=== PATIENT | female | born 1955 | race Caucasian/White ===

== ENCOUNTER → 2016-06-02 17:35 | Outpatient (CLI) | payer MEDICAID ==
[2015-12-01 07:26] VITALS: BMI 19.3
[~2016-06-02 17:35] MED LIST: ADVIL200 MG PO; BAYER CHEWABLE81 MG PO; CELEXA10 MG PO; CHANTIX 1 MG TAB1 MG PO; EFFEXOR XR75 MG PO; FISH OIL 1,0001 CA1 PO; HYDRALAZINE HCL25 MG PO; HYDROCODONE-APA1 TAB PO; LIPITOR20 MG PO; LOPERAMIDE HCL2 MG PO; MULTIPLE VITAMI1 TA1 PO; NIFEDIPINE ER30 MG PO; PLAVIX75 MG PO; PREDNISONE20 MG PO; PROZAC20 MG PO; RESTORIL15 MG PO; SINGULAIR10 MG PO; TOPROL XL25 MG PO; ULTRAM50 MG PO
[2016-06-02 19:39] LABS: ALT (SGPT) 58 U/L (10-68); CHOL - HDL RATIO 9.7 ratio (2.3-4.1); CHOLESTEROL, TOTAL 290 mg/dL (0-200); HDL CHOLESTEROL 30 mg/dL (32-96); TRIGLYCERIDE 436 mg/dL (30-200)
== END | disposition home or self-care (01) ==
LOC: D.LABREF 17:35
PROVIDERS: Nurse Practitioner
DX: E78.5 Hyperlipidemia, unspecified (principal)

== ENCOUNTER → 2016-06-08 08:07 | Outpatient (CLI) | payer MEDICAID ==
[2015-12-01 07:26] VITALS: BMI 19.3
[2016-06-09 08:20] LABS: HEPATITIS C ANTIBODY <0.1 (0.0-0.9)
== END | disposition home or self-care (01) ==
LOC: D.US 08:07
PROVIDERS: Internal Medicine Gastroenterology
DX: R10.9 Unspecified abdominal pain (principal); R74.8 Abnormal levels of other serum enzymes

== ENCOUNTER → 2016-06-14 08:39 | Outpatient (CLI) | payer MEDICAID ==
[2015-12-01 07:26] VITALS: BMI 19.3
== END | disposition home or self-care (01) ==
LOC: D.CT 08:39
DX: R93.422 Abnormal radiologic findings on diagnostic imaging of left kidney (principal); N28.9 Disorder of kidney and ureter, unspecified

== ENCOUNTER → 2016-06-24 09:40 | Outpatient (CLI) | payer MEDICAID ==
[2015-12-01 07:26] VITALS: BMI 19.3
[2016-06-24 10:56] LABS: ALBUMIN 3.3 g/dL (3.4-5.0); BILIRUBIN - INDIRECT 0.17 mg/dL (0.00-1.00); BILIRUBIN - TOTAL 0.21 mg/dL (0.2-1.3); PROTEIN - SERUM 8.3 g/dL (6.4-8.2)
[2016-06-24 10:58] LABS: BILIRUBIN - DIRECT 0.04 mg/dL (0.00-0.30)
[2016-06-25 08:15] LABS: CEA 5.3 ng/mL (0.0-4.7)
== END | disposition home or self-care (01) ==
LOC: D.LAB 09:40
PROVIDERS: Internal Medicine Gastroenterology
DX: K86.89 Other specified diseases of pancreas (principal)

== ENCOUNTER 2016-07-07 05:28 | Outpatient (CLI) | payer MEDICAID ==
[~2016-07-07] VITALS: Ht 160 cm; Wt 54.5 kg
[~2016-07-07 05:28] MED LIST changes: -FISH OIL 1,0001 CA1 PO; -LIPITOR20 MG PO; -LOPERAMIDE HCL2 MG PO; -PREDNISONE20 MG PO; -SINGULAIR10 MG PO
[2016-07-07 06:25] VITALS: BP 114/64; Ht 160 cm; Wt 54.5 kg
[2016-07-07 06:31] LABS: BASOPHILS 0.2 % (0.0-2.0); EOSINOPHILS 1.3 % (0-7); HEMATOCRIT 46.2 % (36.0-48.0); IMMATURE GRANULOCYTES 0.5 % (0-5); LYMPHOCYTES 21.9 % (15-50); MCH 32.1 pg (26.0-34.0); MCHC 34.6 g/dL (31.0-37.0); MCV 92.8 fL (80.0-100.0); MEAN PLATELET VOLUME 9.4 fL (7.4-10.4); NEUTROPHILS 66.1 % (40-80); RBC 4.98 10x6/uL (4.00-5.40); RDW 13.5 % (11.5-14.5)
[2016-07-07] MEDS ORDERED: LIPITOR20 MG PO (06:32)
[2016-07-07] MEDS ORDERED: FISH OIL 1,0001 CA1 PO (06:32)
[2016-07-07 06:39] LABS: PLATELET COUNT 264 10x3/uL (130-400)
[2016-07-07 07:02] LABS: CALC OSMOLALITY 275 mosm/kg (275-300); CALCIUM 8.8 mg/dL (8.5-10.1); CARBON DIOXIDE 23.2 mmol/L (21.0-32.0); CHLORIDE - SERUM 102 mmol/L (98-107); CREATININE - SERUM 0.6 mg/dL (0.6-1.3); SODIUM 137 mmol/L (136-145); UREA NITROGEN 15 mg/dL (7-18); eGFR NON AFRICAN AMERICAN > 90 mL/min (90-120)
[2016-07-07 07:06] LABS: GLUCOSE 113 mg/dL (74-106)
[2016-07-07 07:18] LABS: APTT 35.3 SECONDS (22.8-39.4); INR 0.99 (0.85-1.17)
--- NOTE | 2016-07-07 09:33 | NUR ---
0915-RECD FROM INTERVENTIONAL RADIOLOGY, POST OP PANCREAS BIOPSY. LEFT LOWER/OUTER BACK DRESING DRY AND INTACT. IV PATENT LEFT WRIST. DENIES PAIN. 0930-REGULAR BREAKFAST TRAY SERVED. NO NAUSEA. NO PAIN.
--- NOTE | 2016-07-07 10:16 | NUR ---
1000-SEE FREQUENT VITAL SIGN SHEET FOR VITAL SIGNS AND INCISION CHECK.
--- NOTE | 2016-07-07 11:51 | NUR ---
1130-UP TO BATHROOM, VOIDS FREELY. AMBULATES WITHOUT DIZZINESS WITH STAND BY ASSIST. 1145-IV D/C.
--- NOTE | 2016-07-07 13:58 | NUR ---
1200-DRESSING DRY AND INTACT, DENIES PAIN. 1230-DISCHARGE INSTRUCTIONS REVIEWED. 1300-D/C HOME VIA WHEELCHAIR.
== END 2016-07-07 13:00 | disposition home or self-care (01) ==
LOC: D.OPS 05:28 → D.SP 08:00 → D.OPS 08:00
PROVIDERS: Radiology Diagnostic Radiology
DX: K86.1 Other chronic pancreatitis (principal)

== ENCOUNTER 2016-07-09 17:57 | Inpatient (IN) | payer MEDICAID ==
[~2016-07-09 17:57] MED LIST changes: +FISH OIL 1,0001 CA1 PO; +LIPITOR20 MG PO
[2016-07-09 19:25] LABS: MCH 31.8 pg (26.0-34.0); MCHC 34.9 g/dL (31.0-37.0); MCV 91.3 fL (80.0-100.0); MEAN PLATELET VOLUME 9.7 fL (7.4-10.4); PLATELET COUNT 310 10x3/uL (130-400); RBC 4.71 10x6/uL (4.00-5.40); RDW 13.4 % (11.5-14.5); WBC 31.7 10x3/uL (4.8-10.8)
[2016-07-09 19:37] LABS: ALKALINE PHOSPHATASE 201 U/L (46-116); ALT (SGPT) 205 U/L (10-68); BILIRUBIN - TOTAL 0.54 mg/dL (0.2-1.3); CALC OSMOLALITY 268 mosm/kg (275-300); CARBON DIOXIDE 21.8 mmol/L (21.0-32.0); CHLORIDE - SERUM 97 mmol/L (98-107); CREATININE - SERUM 0.7 mg/dL (0.6-1.3); GLUCOSE 162 mg/dL (74-106); PROTEIN - SERUM 8.5 g/dL (6.4-8.2); SODIUM 133 mmol/L (136-145); UREA NITROGEN 11 mg/dL (7-18); eGFR NON AFRICAN AMERICAN > 90 mL/min (90-120)
[2016-07-09 19:45] LABS: CREATINE KINASE 55 UL (21-215); PRO BNP 161 pg/mL (0-125)
[2016-07-09 19:50] LABS: LYMPHOCYTES 4 % (15-50); MONOCYTES 6 % (2-11); NEUTROPHILS 89 % (40-80); TROPONIN-I < 0.017 ng/mL (0.000-0.060)
[2016-07-09 19:51] LABS: PLATELET ESTIMATE NORMAL
[2016-07-09 22:01] LABS: INR 1.07 (0.85-1.17); PROTIME 13.8 SECONDS (11.6-15.0)
[2016-07-10 01:04] LABS: RBC 2.92 10x6/uL (4.00-5.40); WBC 27.9 10x3/uL (4.8-10.8)
[2016-07-10 01:05] LABS: BASOPHILS 0.1 % (0.0-2.0); EOSINOPHILS 0.1 % (0-7); HEMATOCRIT 27.3 % (36.0-48.0); HEMOGLOBIN 8.9 g/dL (12-16); IMMATURE GRANULOCYTES 1.6 % (0-5); MCH 30.5 pg (26.0-34.0); MCHC 32.6 g/dL (31.0-37.0); MCV 93.5 fL (80.0-100.0); MEAN PLATELET VOLUME 9.8 fL (7.4-10.4); MONOCYTES 6.7 % (2-11); NEUTROPHILS 84.5 % (40-80); PLATELET COUNT 278 10x3/uL (130-400); RDW 13.8 % (11.5-14.5)
[2016-07-10 01:35] LABS: BILIRUBIN - TOTAL 0.5 mg/dL (0.2-1.3); CALCIUM 7.9 mg/dL (8.5-10.1); POTASSIUM - SERUM 4.6 mmol/L (3.5-5.1)
[2016-07-10 01:36] LABS: CARBON DIOXIDE 13.6 mmol/L (21.0-32.0); CREATININE - SERUM 1.3 mg/dL (0.6-1.3); PROTEIN - SERUM 5.9 g/dL (6.4-8.2)
[2016-07-10 05:23] LABS: ALKALINE PHOSPHATASE 94 U/L (46-116); AMYLASE - SERUM 40 U/L (25-115); APTT 31.4 SECONDS (22.8-39.4); CHLORIDE - SERUM 107 mmol/L (98-107); HEMATOCRIT 25.4 % (36.0-48.0); HEMOGLOBIN 8.4 g/dL (12-16); INR 1.86 (0.85-1.17); LIPASE 104 U/L (73-393); PHOSPHOROUS 6.3 mg/dL (2.5-4.9); PROTIME 21.4 SECONDS (11.6-15.0); RBC 2.83 10x6/uL (4.00-5.40); SODIUM 135 mmol/L (136-145); UREA NITROGEN 17 mg/dL (7-18); WBC 23.7 10x3/uL (4.8-10.8)
[2016-07-10 05:24] LABS: BASOPHILS 0 % (0.0-2.0); CALC OSMOLALITY 279 mosm/kg (275-300); CARBON DIOXIDE 18.4 mmol/L (21.0-32.0); CREATININE - SERUM 0.8 mg/dL (0.6-1.3); EOSINOPHILS 0 % (0-7); GLUCOSE 248 mg/dL (74-106); IMMATURE GRANULOCYTES 1.4 % (0-5); MCH 29.7 pg (26.0-34.0); MCHC 33.1 g/dL (31.0-37.0); MCV 89.8 fL (80.0-100.0); MEAN PLATELET VOLUME 9.7 fL (7.4-10.4); MONOCYTES 11.5 % (2-11); NEUTROPHILS 81.1 % (40-80); PLATELET COUNT 166 10x3/uL (130-400); POTASSIUM - SERUM 3.7 mmol/L (3.5-5.1); eGFR NON AFRICAN AMERICAN 78 mL/min (90-120)
[2016-07-10 05:25] LABS: ALBUMIN 1.4 g/dL (3.4-5.0); ALT (SGPT) 101 U/L (10-68); CALCIUM 6.4 mg/dL (8.5-10.1); PROTEIN - SERUM 4.1 g/dL (6.4-8.2)
[2016-07-10 09:58] LABS: BASOPHILS 0.1 % (0.0-2.0); EOSINOPHILS 0 % (0-7); HEMATOCRIT 43.9 % (36.0-48.0); IMMATURE GRANULOCYTES 1.1 % (0-5); LYMPHOCYTES 7.2 % (15-50); MCH 29.1 pg (26.0-34.0); MCHC 34.2 g/dL (31.0-37.0); MCV 85.1 fL (80.0-100.0); MEAN PLATELET VOLUME 10.1 fL (7.4-10.4); MONOCYTES 9.3 % (2-11); NEUTROPHILS 82.3 % (40-80); PLATELET COUNT 131 10x3/uL (130-400); RBC 5.16 10x6/uL (4.00-5.40); RDW 14.5 % (11.5-14.5); WBC 29.4 10x3/uL (4.8-10.8)
[2016-07-10 14:01] LABS: BASOPHILS 0 % (0.0-2.0); EOSINOPHILS 0 % (0-7); HEMATOCRIT 41.3 % (36.0-48.0); HEMOGLOBIN 14.3 g/dL (12-16); IMMATURE GRANULOCYTES 0.7 % (0-5); LYMPHOCYTES 6.5 % (15-50); MCH 28.8 pg (26.0-34.0); MCHC 34.6 g/dL (31.0-37.0); MCV 83.1 fL (80.0-100.0); MEAN PLATELET VOLUME 10.2 fL (7.4-10.4); MONOCYTES 11.7 % (2-11); NEUTROPHILS 81.1 % (40-80); PLATELET COUNT 149 10x3/uL (130-400); RBC 4.97 10x6/uL (4.00-5.40); RDW 15.2 % (11.5-14.5); WBC 28.1 10x3/uL (4.8-10.8)
[2016-07-10 17:41] LABS: APPEARANCE HAZY (CLEAR); BACTERIA MODERATE /hpf (NONE SEEN); BILIRUBIN NEGATIVE (NEGATIVE); COLOR YELLOW (YELLOW); EPITHELIAL CELLS 0-5 /hpf (0-5); GLUCOSE NEGATIVE (NEGATIVE); KETONE NEGATIVE (NEGATIVE); LEUKOCYTE ESTERASE TRACE (NEGATIVE); NITRITE NEGATIVE (NEGATIVE); PROTEIN TRACE mg/dL (NEGATIVE); RED CELLS - URINE OCC /hpf (0-5); UROBILINOGEN NORMAL (NORMAL)
[2016-07-10 17:45] LABS: UDS - AMPHET NEGATIVE QUAL (NEGATIVE); UDS - BARB NEGATIVE QUAL (NEGATIVE); UDS - BENZO POSITIVE QUAL (NEGATIVE); UDS - COCAINE NEGATIVE QUAL (NEGATIVE); UDS - METH NEGATIVE QUAL (NEGATIVE); UDS - OPIATE POSITIVE QUAL (NEGATIVE); UDS - PCP NEGATIVE QUAL (NEGATIVE); UDS - THC NEGATIVE QUAL (NEGATIVE)
[2016-07-10 18:24] LABS: BASOPHILS 0.1 % (0.0-2.0); EOSINOPHILS 0 % (0-7); HEMATOCRIT 37.9 % (36.0-48.0); HEMOGLOBIN 13.5 g/dL (12-16); IMMATURE GRANULOCYTES 0.6 % (0-5); LYMPHOCYTES 7.5 % (15-50); MCH 29.2 pg (26.0-34.0); MCHC 35.6 g/dL (31.0-37.0); MCV 81.9 fL (80.0-100.0); MEAN PLATELET VOLUME 10.5 fL (7.4-10.4); MONOCYTES 10.2 % (2-11); NEUTROPHILS 81.6 % (40-80); PLATELET COUNT 171 10x3/uL (130-400); RBC 4.63 10x6/uL (4.00-5.40); RDW 15.4 % (11.5-14.5); WBC 30.8 10x3/uL (4.8-10.8)
[2016-07-10 22:15] LABS: BASOPHILS 0 % (0.0-2.0); EOSINOPHILS 0 % (0-7); HEMATOCRIT 34.7 % (36.0-48.0); HEMOGLOBIN 12.2 g/dL (12-16); IMMATURE GRANULOCYTES 0.6 % (0-5); MCHC 35.2 g/dL (31.0-37.0); MCV 82.6 fL (80.0-100.0); MEAN PLATELET VOLUME 10.3 fL (7.4-10.4); MONOCYTES 13.9 % (2-11); NEUTROPHILS 79.5 % (40-80); PLATELET COUNT 183 10x3/uL (130-400); RDW 15.7 % (11.5-14.5); WBC 33.7 10x3/uL (4.8-10.8)
[2016-07-11 05:09] LABS: BASOPHILS 0.1 % (0.0-2.0); EOSINOPHILS 0 % (0-7); HEMATOCRIT 31.6 % (36.0-48.0); HEMOGLOBIN 11.2 g/dL (12-16); IMMATURE GRANULOCYTES 0.8 % (0-5); LYMPHOCYTES 5.8 % (15-50); MCH 28.9 pg (26.0-34.0); MCHC 35.4 g/dL (31.0-37.0); MCV 81.7 fL (80.0-100.0); MEAN PLATELET VOLUME 10.3 fL (7.4-10.4); NEUTROPHILS 79.3 % (40-80); PLATELET COUNT 193 10x3/uL (130-400); RBC 3.87 10x6/uL (4.00-5.40); RDW 15.4 % (11.5-14.5); WBC 37.6 10x3/uL (4.8-10.8)
[2016-07-11 05:20] LABS: ALKALINE PHOSPHATASE 112 U/L (46-116); CHLORIDE - SERUM 102 mmol/L (98-107); POTASSIUM - SERUM 3.6 mmol/L (3.5-5.1); SODIUM 135 mmol/L (136-145); UREA NITROGEN 20 mg/dL (7-18)
[2016-07-11 05:26] LABS: ALBUMIN 2.1 g/dL (3.4-5.0); ALT (SGPT) 144 U/L (10-68); CALC OSMOLALITY 274 mosm/kg (275-300); CALCIUM 8.3 mg/dL (8.5-10.1); CARBON DIOXIDE 24.8 mmol/L (21.0-32.0); CREATININE - SERUM 0.5 mg/dL (0.6-1.3); GLUCOSE 130 mg/dL (74-106); PROTEIN - SERUM 5.8 g/dL (6.4-8.2); eGFR NON AFRICAN AMERICAN > 90 mL/min (90-120)
[2016-07-11 10:37] LABS: INR 1.14 (0.85-1.17); PROTIME 14.5 SECONDS (11.6-15.0)
[2016-07-12 05:43] LABS: APTT 32.1 SECONDS (22.8-39.4); INR 1.17 (0.85-1.17); PROTIME 14.8 SECONDS (11.6-15.0)
[2016-07-12 05:50] LABS: ALBUMIN 2.6 g/dL (3.4-5.0); ALKALINE PHOSPHATASE 103 U/L (46-116); CALC OSMOLALITY 275 mosm/kg (275-300); CALCIUM 8.7 mg/dL (8.5-10.1); CHLORIDE - SERUM 99 mmol/L (98-107); CREATININE - SERUM 0.5 mg/dL (0.6-1.3); GLUCOSE 126 mg/dL (74-106); POTASSIUM - SERUM 3.3 mmol/L (3.5-5.1); PROTEIN - SERUM 6.8 g/dL (6.4-8.2); SODIUM 136 mmol/L (136-145); UREA NITROGEN 17 mg/dL (7-18); eGFR NON AFRICAN AMERICAN > 90 mL/min (90-120)
[2016-07-12 05:53] LABS: BASOPHILS 0 % (0.0-2.0); EOSINOPHILS 0 % (0-7); HEMATOCRIT 25.2 % (36.0-48.0); HEMOGLOBIN 8.8 g/dL (12-16); IMMATURE GRANULOCYTES 0.7 % (0-5); LYMPHOCYTES 3.6 % (15-50); MCH 29.6 pg (26.0-34.0); MCHC 34.9 g/dL (31.0-37.0); MCV 84.8 fL (80.0-100.0); MEAN PLATELET VOLUME 9.9 fL (7.4-10.4); MONOCYTES 12.6 % (2-11); NEUTROPHILS 83.1 % (40-80); PLATELET COUNT 231 10x3/uL (130-400); RBC 2.97 10x6/uL (4.00-5.40); RDW 15.6 % (11.5-14.5); WBC 38.5 10x3/uL (4.8-10.8)
[2016-07-12 06:00] LABS: ALT (SGPT) 91 U/L (10-68); CARBON DIOXIDE 31.9 mmol/L (21.0-32.0); MAGNESIUM - SERUM 2.9 mg/dL (1.8-2.4); PHOSPHOROUS 2.3 mg/dL (2.5-4.9)
[2016-07-12 16:02] LABS: BASOPHILS 0 % (0.0-2.0); EOSINOPHILS 0 % (0-7); HEMATOCRIT 25.1 % (36.0-48.0); HEMOGLOBIN 8.5 g/dL (12-16); IMMATURE GRANULOCYTES 0.8 % (0-5); LYMPHOCYTES 1.9 % (15-50); MCH 29.2 pg (26.0-34.0); MCHC 33.9 g/dL (31.0-37.0); MCV 86.3 fL (80.0-100.0); MEAN PLATELET VOLUME 9.3 fL (7.4-10.4); MONOCYTES 7.7 % (2-11); NEUTROPHILS 89.6 % (40-80); PLATELET COUNT 239 10x3/uL (130-400); RBC 2.91 10x6/uL (4.00-5.40); RDW 15.7 % (11.5-14.5); WBC 44.3 10x3/uL (4.8-10.8)
[2016-07-13 04:14] LABS: BASOPHILS 0 % (0.0-2.0); EOSINOPHILS 0 % (0-7); HEMATOCRIT 23.2 % (36.0-48.0); HEMOGLOBIN 7.6 g/dL (12-16); IMMATURE GRANULOCYTES 0.5 % (0-5); LYMPHOCYTES 1.9 % (15-50); MCH 28.9 pg (26.0-34.0); MCHC 32.8 g/dL (31.0-37.0); MCV 88.2 fL (80.0-100.0); MEAN PLATELET VOLUME 9.4 fL (7.4-10.4); MONOCYTES 5.3 % (2-11); NEUTROPHILS 92.3 % (40-80); PLATELET COUNT 246 10x3/uL (130-400); RBC 2.63 10x6/uL (4.00-5.40); RDW 15.8 % (11.5-14.5); WBC 42.6 10x3/uL (4.8-10.8)
[2016-07-13 04:21] LABS: ALBUMIN 2.2 g/dL (3.4-5.0); ALKALINE PHOSPHATASE 101 U/L (46-116); ALT (SGPT) 71 U/L (10-68); BILIRUBIN - TOTAL 0.54 mg/dL (0.2-1.3); CALCIUM 8.1 mg/dL (8.5-10.1); CARBON DIOXIDE 24.3 mmol/L (21.0-32.0); CHLORIDE - SERUM 100 mmol/L (98-107); GLUCOSE 146 mg/dL (74-106); MAGNESIUM - SERUM 3.2 mg/dL (1.8-2.4); PHOSPHOROUS 2.8 mg/dL (2.5-4.9); POTASSIUM - SERUM 3.7 mmol/L (3.5-5.1); PRO BNP 2392 pg/mL (0-125); PROTEIN - SERUM 6.7 g/dL (6.4-8.2); SODIUM 138 mmol/L (136-145)
[2016-07-13 04:22] LABS: CALC OSMOLALITY 281 mosm/kg (275-300); CREATININE - SERUM 0.7 mg/dL (0.6-1.3); UREA NITROGEN 22 mg/dL (7-18); eGFR NON AFRICAN AMERICAN > 90 mL/min (90-120)
[2016-07-13 09:18] LABS: IMMUNOGLOBULIN E 31 IU/mL (0-100)
[2016-07-14 04:37] LABS: BASOPHILS 0.1 % (0.0-2.0); EOSINOPHILS 0 % (0-7); HEMATOCRIT 29.6 % (36.0-48.0); HEMOGLOBIN 9.7 g/dL (12-16); IMMATURE GRANULOCYTES 1.7 % (0-5); LYMPHOCYTES 2.4 % (15-50); MCH 27.9 pg (26.0-34.0); MCHC 32.8 g/dL (31.0-37.0); MCV 85.1 fL (80.0-100.0); MEAN PLATELET VOLUME 9.4 fL (7.4-10.4); MONOCYTES 7.3 % (2-11); NEUTROPHILS 88.5 % (40-80); PLATELET COUNT 283 10x3/uL (130-400); RBC 3.48 10x6/uL (4.00-5.40); RDW 18.2 % (11.5-14.5)
[2016-07-14 04:45] LABS: ALBUMIN 2.2 g/dL (3.4-5.0); ALKALINE PHOSPHATASE 101 U/L (46-116); ALT (SGPT) 68 U/L (10-68); BILIRUBIN - TOTAL 0.64 mg/dL (0.2-1.3); CALC OSMOLALITY 288 mosm/kg (275-300); CARBON DIOXIDE 26.2 mmol/L (21.0-32.0); CHLORIDE - SERUM 105 mmol/L (98-107); GLUCOSE 178 mg/dL (74-106); MAGNESIUM - SERUM 3.3 mg/dL (1.8-2.4); PHOSPHOROUS 2.2 mg/dL (2.5-4.9); POTASSIUM - SERUM 3.6 mmol/L (3.5-5.1); PROTEIN - SERUM 6.9 g/dL (6.4-8.2); SODIUM 142 mmol/L (136-145); UREA NITROGEN 18 mg/dL (7-18)
[2016-07-14 04:50] LABS: CREATININE - SERUM 0.5 mg/dL (0.6-1.3); eGFR NON AFRICAN AMERICAN > 90 mL/min (90-120)
[2016-07-15 04:22] LABS: HEMATOCRIT 30.8 % (36.0-48.0); HEMOGLOBIN 10.3 g/dL (12-16); MCH 28.1 pg (26.0-34.0); MCHC 33.4 g/dL (31.0-37.0); MCV 84.2 fL (80.0-100.0); RBC 3.66 10x6/uL (4.00-5.40); RDW 17.8 % (11.5-14.5); WBC 30.2 10x3/uL (4.8-10.8)
[2016-07-15 04:23] LABS: LYMPHOCYTES 3.8 % (15-50); MEAN PLATELET VOLUME 8.8 fL (7.4-10.4); NEUTROPHILS 86.9 % (40-80); PLATELET COUNT 365 10x3/uL (130-400)
[2016-07-15 04:37] LABS: ALBUMIN 2.2 g/dL (3.4-5.0); ALKALINE PHOSPHATASE 99 U/L (46-116); ALT (SGPT) 68 U/L (10-68); BILIRUBIN - TOTAL 0.74 mg/dL (0.2-1.3); CALC OSMOLALITY 291 mosm/kg (275-300); CALCIUM 7.8 mg/dL (8.5-10.1); CARBON DIOXIDE 29.4 mmol/L (21.0-32.0); CHLORIDE - SERUM 105 mmol/L (98-107); CREATININE - SERUM 0.4 mg/dL (0.6-1.3); GLUCOSE 155 mg/dL (74-106); MAGNESIUM - SERUM 2.9 mg/dL (1.8-2.4); POTASSIUM - SERUM 3.6 mmol/L (3.5-5.1); PROTEIN - SERUM 6.8 g/dL (6.4-8.2); SODIUM 144 mmol/L (136-145); UREA NITROGEN 18 mg/dL (7-18); eGFR NON AFRICAN AMERICAN > 90 mL/min (90-120)
[2016-07-16 05:35] LABS: BASOPHILS 0.1 % (0-2); EOSINOPHILS 0 % (0-7); HEMATOCRIT 32.9 % (36.0-48.0); HEMOGLOBIN 10.6 g/dL (12-16); IMMATURE GRANULOCYTES 4.7 % (0-5); LYMPHOCYTES 6.6 % (15-50); MCH 27.9 pg (26.0-34.0); MCHC 32.2 g/dL (31.0-37.0); MCV 86.6 fL (80.0-100.0); MEAN PLATELET VOLUME 9.7 fL (7.4-10.4); MONOCYTES 5.4 % (2-11); NEUTROPHILS 83.2 % (40-80); PLATELET COUNT 386 10x3/uL (130-400); RDW 17.1 % (11.5-14.5); WBC 32.1 10x3/uL (4.8-10.8)
[2016-07-16 05:48] LABS: ALBUMIN 2.2 g/dL (3.4-5.0); ALKALINE PHOSPHATASE 103 U/L (46-116); ALT (SGPT) 52 U/L (10-68); BILIRUBIN - TOTAL 0.88 mg/dL (0.2-1.3); CALC OSMOLALITY 285 mosm/kg (275-300); CHLORIDE - SERUM 105 mmol/L (98-107); CREATININE - SERUM 0.3 mg/dL (0.6-1.3); GLUCOSE 127 mg/dL (74-106); MAGNESIUM - SERUM 2.6 mg/dL (1.8-2.4); POTASSIUM - SERUM 3.5 mmol/L (3.5-5.1); PROTEIN - SERUM 6.6 g/dL (6.4-8.2); SODIUM 141 mmol/L (136-145); UREA NITROGEN 20 mg/dL (7-18); eGFR NON AFRICAN AMERICAN > 90 mL/min (90-120)
[2016-07-17 06:01] LABS: HEMOGLOBIN 10.6 g/dL (12-16); MCH 27.7 pg (26.0-34.0); MCHC 32.1 g/dL (31.0-37.0); MCV 86.4 fL (80.0-100.0); MEAN PLATELET VOLUME 9.5 fL (7.4-10.4); PLATELET COUNT 375 10x3/uL (130-400); RBC 3.82 10x6/uL (4.00-5.40); RDW 16.8 % (11.5-14.5); WBC 32.9 10x3/uL (4.8-10.8)
[2016-07-17 06:08] LABS: ALBUMIN 2.1 g/dL (3.4-5.0); ALKALINE PHOSPHATASE 95 U/L (46-116); ALT (SGPT) 42 U/L (10-68); BILIRUBIN - TOTAL 0.79 mg/dL (0.2-1.3); CALC OSMOLALITY 283 mosm/kg (275-300); CALCIUM 7.8 mg/dL (8.5-10.1); CARBON DIOXIDE 25.9 mmol/L (21.0-32.0); CHLORIDE - SERUM 104 mmol/L (98-107); CREATININE - SERUM 0.4 mg/dL (0.6-1.3); GLUCOSE 139 mg/dL (74-106); MAGNESIUM - SERUM 2.5 mg/dL (1.8-2.4); POTASSIUM - SERUM 3.5 mmol/L (3.5-5.1); PROTEIN - SERUM 6.4 g/dL (6.4-8.2); SODIUM 140 mmol/L (136-145); UREA NITROGEN 22 mg/dL (7-18); eGFR NON AFRICAN AMERICAN > 90 mL/min (90-120)
[2016-07-17 06:40] LABS: MONOCYTES 4 % (2-11); NEUTROPHILS 90 % (40-80); PLATELET ESTIMATE NORMAL; PLATELET MORPHOLOGY NORMAL PLT MORPH
[2016-07-18 05:06] LABS: BASOPHILS 0.1 % (0-2); EOSINOPHILS 0.3 % (0-7); HEMATOCRIT 35.5 % (36.0-48.0); HEMOGLOBIN 11.4 g/dL (12-16); IMMATURE GRANULOCYTES 4.2 % (0-5); LYMPHOCYTES 3.9 % (15-50); MCH 27.7 pg (26.0-34.0); MCHC 32.1 g/dL (31.0-37.0); MCV 86.2 fL (80.0-100.0); MEAN PLATELET VOLUME 9.9 fL (7.4-10.4); MONOCYTES 6.9 % (2-11); NEUTROPHILS 84.6 % (40-80); PLATELET COUNT 410 10x3/uL (130-400); RBC 4.12 10x6/uL (4.00-5.40); RDW 16.6 % (11.5-14.5)
[2016-07-18 05:36] LABS: ALBUMIN 2.1 g/dL (3.4-5.0); ALKALINE PHOSPHATASE 95 U/L (46-116); ALT (SGPT) 42 U/L (10-68); BILIRUBIN - TOTAL 0.97 mg/dL (0.2-1.3); CALCIUM 8.2 mg/dL (8.5-10.1); CARBON DIOXIDE 27.6 mmol/L (21.0-32.0); CHLORIDE - SERUM 104 mmol/L (98-107); CREATININE - SERUM 0.4 mg/dL (0.6-1.3); PROTEIN - SERUM 6.4 g/dL (6.4-8.2); SODIUM 140 mmol/L (136-145); UREA NITROGEN 18 mg/dL (7-18); eGFR NON AFRICAN AMERICAN > 90 mL/min (90-120)
[2016-07-18 05:39] LABS: CALC OSMOLALITY 278 mosm/kg (275-300); GLUCOSE 69 mg/dL (74-106); POTASSIUM - SERUM 2.9 mmol/L (3.5-5.1)
[2016-07-19 06:04] LABS: BASOPHILS 0.1 % (0-2); EOSINOPHILS 0.3 % (0-7); HEMATOCRIT 34.6 % (36.0-48.0); HEMOGLOBIN 11.4 g/dL (12-16); IMMATURE GRANULOCYTES 2.7 % (0-5); LYMPHOCYTES 4.8 % (15-50); MCH 28.1 pg (26.0-34.0); MCHC 32.9 g/dL (31.0-37.0); MCV 85.4 fL (80.0-100.0); MEAN PLATELET VOLUME 9.5 fL (7.4-10.4); MONOCYTES 8.8 % (2-11); NEUTROPHILS 83.3 % (40-80); PLATELET COUNT 377 10x3/uL (130-400); RBC 4.05 10x6/uL (4.00-5.40); RDW 16.5 % (11.5-14.5); WBC 29.6 10x3/uL (4.8-10.8)
[2016-07-19 06:41] LABS: ALKALINE PHOSPHATASE 100 U/L (46-116); ALT (SGPT) 40 U/L (10-68); CALCIUM 8.2 mg/dL (8.5-10.1); CARBON DIOXIDE 27.6 mmol/L (21.0-32.0); CHLORIDE - SERUM 102 mmol/L (98-107); CREATININE - SERUM 0.3 mg/dL (0.6-1.3); MAGNESIUM - SERUM 1.7 mg/dL (1.8-2.4); POTASSIUM - SERUM 3.1 mmol/L (3.5-5.1); PROTEIN - SERUM 6.3 g/dL (6.4-8.2); SODIUM 138 mmol/L (136-145); eGFR NON AFRICAN AMERICAN > 90 mL/min (90-120)
[2016-07-19 06:47] LABS: CALC OSMOLALITY 276 mosm/kg (275-300); GLUCOSE 111 mg/dL (74-106); UREA NITROGEN 13 mg/dL (7-18)
[2016-07-20] MEDS ORDERED: LOPERAMIDE HCL2 MG PO (12:35)
[2016-07-20] MEDS ORDERED: SINGULAIR10 MG PO (12:35)
[2016-07-20] MEDS ORDERED: PREDNISONE20 MG PO (12:39)
[2016-07-21 07:03] LABS: MAGNESIUM - SERUM 1.8 mg/dL (1.8-2.4); POTASSIUM - SERUM 4.4 mmol/L (3.5-5.1)
== END 2016-07-21 11:49 | disposition home health service (06) | DRG 356 ==
LOC: D.ER 17:57 → D.ICU 22:02 → D.MS 07-18 21:00
PROVIDERS: Emergency Medicine; General Practice; Internal Medicine Pulmonary Disease; Nurse Practitioner Family; Radiology Diagnostic Radiology; Surgery; ADMIT Family Medicine
PROC: 02H633Z Insertion of Infusion Device into Right Atrium, Percutaneous Approach (ICD-10-PCS; principal; 2016-07-10)
PROC: 04L43DZ Occlusion of Splenic Artery with Intraluminal Device, Percutaneous Approach (ICD-10-PCS; 2016-07-10)
PROC: B244YZZ Ultrasonography of Right Heart using Other Contrast (ICD-10-PCS; 2016-07-10)
PROC: B4151ZZ Fluoroscopy of Inferior Mesenteric Artery using Low Osmolar Contrast (ICD-10-PCS; 2016-07-10)
PROC: 0T9B70Z Drainage of Bladder with Drainage Device, Via Natural or Artificial Opening (ICD-10-PCS; 2016-07-10)
PROC: 5A09357 Assistance with Respiratory Ventilation, Less than 24 Consecutive Hours, Continuous Positive Airway Pressure (ICD-10-PCS; 2016-07-12)
PROC: 0BH17EZ Insertion of Endotracheal Airway into Trachea, Via Natural or Artificial Opening (ICD-10-PCS; 2016-07-12)
PROC: 5A1955Z Respiratory Ventilation, Greater than 96 Consecutive Hours (ICD-10-PCS; 2016-07-12)
DX: K91.89 Other postprocedural complications and disorders of digestive system (principal); A41.9 Sepsis, unspecified organism; K66.1 Hemoperitoneum; J18.9 Pneumonia, unspecified organism; J96.01 Acute respiratory failure with hypoxia; T79.4XXA Traumatic shock, initial encounter; I50.31 Acute diastolic (congestive) heart failure; S36.899A Unspecified injury of other intra-abdominal organs, initial encounter; D62 Acute posthemorrhagic anemia; J44.0 Chronic obstructive pulmonary disease with (acute) lower respiratory infection; J44.1 Chronic obstructive pulmonary disease with (acute) exacerbation; N17.9 Acute kidney failure, unspecified; J98.11 Atelectasis; I70.219 Atherosclerosis of native arteries of extremities with intermittent claudication, unspecified extremity; E83.51 Hypocalcemia; R74.8 Abnormal levels of other serum enzymes; Y84.8 Other medical procedures as the cause of abnormal reaction of the patient, or of later complication, without mention of misadventure at the time of the procedure; I25.10 Atherosclerotic heart disease of native coronary artery without angina pectoris; E78.5 Hyperlipidemia, unspecified; J30.9 Allergic rhinitis, unspecified; K63.5 Polyp of colon; F41.9 Anxiety disorder, unspecified; F32.9 Major depressive disorder, single episode, unspecified; Z95.5 Presence of coronary angioplasty implant and graft; F17.200 Nicotine dependence, unspecified, uncomplicated; I11.0 Hypertensive heart disease with heart failure

== ENCOUNTER → 2016-10-11 07:39 | Outpatient (CLI) | payer MEDICAID ==
[2016-07-11 09:41] VITALS: BMI 24.9
[~2016-10-11 07:39] MED LIST changes: +LOPERAMIDE HCL2 MG PO; +PREDNISONE20 MG PO; +SINGULAIR10 MG PO
[2016-10-11 08:07] LABS: BASOPHILS 0.2 % (0-2); EOSINOPHILS 1.2 % (0-7); HEMATOCRIT 47.7 % (36.0-48.0); HEMOGLOBIN 15.7 g/dL (12-16); IMMATURE GRANULOCYTES 0.2 % (0-5); LYMPHOCYTES 25.2 % (15-50); MCH 28.9 pg (26.0-34.0); MCHC 32.9 g/dL (31.0-37.0); MCV 87.7 fL (80.0-100.0); MEAN PLATELET VOLUME 8.9 fL (7.4-10.4); NEUTROPHILS 62.2 % (40-80); PLATELET COUNT 368 10x3/uL (130-400); RBC 5.44 10x6/uL (4.00-5.40); RDW 17.7 % (11.5-14.5); WBC 16.3 10x3/uL (4.8-10.8)
[2016-10-11 08:41] LABS: ALBUMIN 3.4 g/dL (3.4-5.0); ALKALINE PHOSPHATASE 162 U/L (46-116); ALT (SGPT) 41 U/L (10-68); BILIRUBIN - TOTAL 0.17 mg/dL (0.2-1.3); CALC OSMOLALITY 275 mosm/kg (275-300); CALCIUM 9.2 mg/dL (8.5-10.1); CARBON DIOXIDE 24.1 mmol/L (21.0-32.0); CHLORIDE - SERUM 103 mmol/L (98-107); CREATININE - SERUM 0.6 mg/dL (0.6-1.3); GLUCOSE 104 mg/dL (74-106); POTASSIUM - SERUM 4.4 mmol/L (3.5-5.1); PRE-ALBUMIN 27.2 mg/dL (18.0-35.7); PROTEIN - SERUM 7.9 g/dL (6.4-8.2); SODIUM 138 mmol/L (136-145); UREA NITROGEN 13 mg/dL (7-18); eGFR NON AFRICAN AMERICAN > 90 mL/min (90-120)
== END | disposition home or self-care (01) ==
LOC: D.CT 07:39
PROVIDERS: Surgery
DX: R19.09 Other intra-abdominal and pelvic swelling, mass and lump (principal)

== ENCOUNTER 2016-11-22 05:28 | Inpatient (IN) | payer MEDICAID ==
[2016-11-21 12:19] LABS: BASOPHILS 0.2 % (0-2); EOSINOPHILS 1.5 % (0-7); HEMATOCRIT 49.4 % (36.0-48.0); IMMATURE GRANULOCYTES 0.1 % (0-5); LYMPHOCYTES 40.3 % (15-50); MCH 30.8 pg (26.0-34.0); MCHC 34.4 g/dL (31.0-37.0); MCV 89.5 fL (80.0-100.0); MEAN PLATELET VOLUME 9.1 fL (7.4-10.4); MONOCYTES 10.4 % (2-11); NEUTROPHILS 47.5 % (40-80); PLATELET COUNT 379 10x3/uL (130-400); RBC 5.52 10x6/uL (4.00-5.40); RDW 16.6 % (11.5-14.5); WBC 10.2 10x3/uL (4.8-10.8)
[2016-11-21 12:35] LABS: CALC OSMOLALITY 275 mosm/kg (275-300); CALCIUM 9.3 mg/dL (8.5-10.1); CARBON DIOXIDE 27.3 mmol/L (21.0-32.0); CHLORIDE - SERUM 101 mmol/L (98-107); CREATININE - SERUM 0.5 mg/dL (0.6-1.3); GLUCOSE 90 mg/dL (74-106); POTASSIUM - SERUM 4.3 mmol/L (3.5-5.1); SODIUM 138 mmol/L (136-145); UREA NITROGEN 13 mg/dL (7-18); eGFR NON AFRICAN AMERICAN > 90 mL/min (90-120)
[~2016-11-22] VITALS: Ht 160 cm; Wt 48.1 kg
--- NOTE | ~2016-11-22 | OP ---
PATIENT NAME: KARINE TALLEY MEDICAL RECORD: [id number] :59 LOCATION:D.[facility] D.[id number] ADMISSION DATE:11/22/16 SURGEON: JIM ROCKWELL MD DATE OF OPERATION: 11/22/2016 PREOPERATIVE DIAGNOSES: 1. Right colon mass. 2. Distal pancreatic mass. 3. Splenic hematoma. 4. Coronary artery disease. 5. Chronic obstructive pulmonary disease. 6. Hypertension. POSTOPERATIVE DIAGNOSES: 1. Right colon mass. 2. Distal pancreatic mass. 3. Splenic hematoma. 4. Coronary artery disease. 5. Chronic obstructive pulmonary disease. 6. Hypertension. PROCEDURE: 1. Hand-assisted laparoscopic right hemicolectomy. 2. 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 SURGEON: Jim Rockwell MD. REPORT OF PROCEDURE: The patient's abdomen was prepped and draped in sterile fashion. A cutdown was made in the midline just above the umbilicus. Electrocautery was used to dissect through the subcutaneous tissues and fascia until we entered the abdominal cavity. Once in the abdomen, we placed a Gelport with a 5-mm trocar within it. After we insufflated the abdomen, we placed a 5-mm trocar in the right lateral subcostal region and another 5-mm trocar in the epigastrium. The patient's right colon was mobilized medially, taking down the white line of Toldt. We mobilized the patient's hepatic flexure and we the tissues off of the patient's duodenum. We eventually had the colon completely mobilized and we were able to eviscerate it through the wound protector of the Gelport. We transected the distal terminal ileum using a 55 blue load INNA stapler and the proximal transverse colon using a 55 blue load INNA stapler. The mesentery was taken down with sequential clamp and tie technique using a 2-0 silk. The bowel was then opened up and we could see that the colon polyp was visible. We performed a [id number]-kc-[id number] anastomosis using a 55 blue load INNA stapler and closed the enterotomies with a 30 blue load TA stapler. We oversewed the staple lines using Lemberted 3-0 silks and placed the anastomosis into the abdominal cavity. At this point, we reinsufflated the abdomen and a 5-mm trocar was placed in the left lower quadrant and a 12-mm trocar was placed in the left subcostal region. The patient's spleen was easily visualized and noted to have a cystic type mass present from the previous hematoma, blunt dissection around this, the hematoma burst and there was spillage of old bloody tissue. This was irrigated out thoroughly with normal saline until there was good clear return. We eventually were able to come around the spleen superiorly and laterally and we were able to mobilize it medially. It was densely adherent to some of the fatty tissue in the abdomen; we took this off using electrocautery. We eventually were able to get it mobilized enough where we felt that we had the entire spleen mobilized for the dissection of the pancreas. OPERATIVE REPORT [id number] KARINE TALLEY The greater curvature of the stomach was dissected free as we took down the short gastrics using Harmonic scalpel. Once we are in the lesser sac, I could clearly visualize the pancreas and could feel the distal pancreatic mass. The mid pancreas was freed up from the peritoneal attachments using electrocautery and we were able to get posterior to the pancreas. As we dissected posteriorly, we were able to find the splenic artery and vein. These were dissected free and both were transected with a 45 blue load Endo-INNA staplers. The proximal staying ends were then clipped with an Endo clipper device. The pancreas was then transected a little passed over its body using a 45 blue load Endo-INNA stapler. At this point, the pancreas was completely freed and it was pulled out through the wound protector and sent off for permanent specimen. The pancreatic stump was inspected and there was no sign of any bleeding or leakage. We then irrigated out the abdomen thoroughly with normal saline with care taken, irrigated out the left upper quadrant and the pelvis. There was no sign of any active bleeding at the conclusion of the case. The 12-mm trocar was removed and a 19-Montserratian Jabier drain was inserted and placed in the left upper quadrant near the pancreatic stump. After insufflation was removed including the ports, the midline fascia was closed with running #1 loop PDS times 2. We then closed all the skin incisions with victor hugo. COMPLICATIONS: None. CONDITION: Stable. ANESTHESIA: General endotracheal. BLOOD LOSS: 400 mL. TRANSINT:[id number] Voice Confirmation ID: [id number] DOCUMENT ID: [id number] JIM ROCKWELL MD CC: [id number] DICTATION DATE: 11/22/161750 FIRE ALARM OPERATOR: 11/22/16 7331 ADM IN [facility] [address] [facility], [facility]
[~2016-11-22 05:28] MED LIST changes: +LIPITOR10 MG PO; -LIPITOR20 MG PO; +PROAIR HFA8.5 GM INH
[2016-11-22 08:31] VITALS: BMI 18.2
--- NOTE | 2016-11-22 18:40 | NUR ---
REC'D VIA BED FROM RECOVERY, WITH PERSONNEL X2, C/O ERICK 08/03. TYLENOL 1000MG IV AND DILAUDID SPECIAL TECHNICAL OPERATIONS OFFICER INITIATED PER ORDER, NS IVF STARTED, O2 VIA NC AT 2L, NGT TO LEFT NARE, PLACED TO LIWS, ABDOMEN MIDLINE DRESSING CDI, LEFT MIDDLE QUADRANT WITH YELENA DRAIN, CONTENTS BLOODY, RICKETTS TO GRAVITY WITH DARK DRAINAGE TO BAG, SPECIAL TECHNICAL OPERATIONS OFFICER PAIN BUTTON EXPLAINED, VERBALIZED UNDERSTANDING, FAMILY CALLED TO BEDSIDE, STATUS UPDATED, PASSWORD FERCHO GIVEN FOR PHONE UPDATES
[2016-11-22 19:00] VITALS: BP 176/90
[2016-11-22 20:00] VITALS: BP 180/89
[2016-11-22 20:04] VITALS: BP 176/90; BMI 36.3
[2016-11-22 21:00] VITALS: BP 178/93
--- NOTE | 2016-11-22 21:00 | NUR ---
NO VISITORS AT THIS TIME. PT DENIES NEEDS. CALL LIGHT WITHIN REACH. BED IN LOWEST POSITION. WILL CONTINUE TO MONITOR.
[2016-11-22 22:00] VITALS: BP 173/92
[2016-11-22 23:00] VITALS: BP 148/74
--- NOTE | 2016-11-22 23:00 | NUR ---
REASSESSMENT COMPLETE PER FLOW SHEET, SEE FOR DETAILS. NO ACUTE CHANGES NOTED. WILL CONTINUE TO MONITOR. CALL LIGHT WITHIN REACH. BED IN LOWEST POSITION.
[2016-11-23] VITALS (18 sets, daily range): BP systolic 116–156; BP diastolic 52–79; Ht 160 cm; Wt 48.1 kg
--- NOTE | 2016-11-23 01:00 | NUR ---
PT LAYING IN BED, AWAKE AND ALERT. DENIES NEEDS AT THIS TIME. CALL LIGTH WITHIN REACH. BED IN LOWEST POSITION.
--- NOTE | 2016-11-23 01:33 | NUR ---
REPORT RECEIVED. PT LAYING IN BED, AWAKE, ALERT, AND ORIENTED TO PERSON, TIME, PLACE, AND SITUATION. PERRCHAUNCEY. L NARE NGT TO LIWS NO DRAINAGE NOTED IN CANISTER. MUCOUS MEMBRANES MOIST, NO LESIONS NOTED. S1S2 PRESENT. TELEMETRY MONITORING RATE OF 96. RADIAL AND PEDAL PULSES PALP. CAPILLARY REFILL <3 SECS IN UPPER AND LOWER EXTREMITIES. BREATHING PATTERN SHALLOW. LUNG SOUNDS CLEAR ALL LOBES. 2 L O2 VIA NC. RICKETTS CATHETER TO GRAVITY, SECURED, DRAINING FEI URINE. SKIN WARM AND DRY. ABDOMENAL INCISIONS NOTED, DRESSINGS CDI. RT ARM LACERATION, REPORTS "IT'S FROM A DOG THAT SCRATCHED ME." YELENA DRAIN IN UPPER ABDOMEN, BLOODY DRAINAGE NOTED, DRESSING CDI. RT WRIST PIV, PATENT, DRESSING CDI. LT WRIST PIV, PATENT, DRESSING CDI, INFUSING NS AT 125 MLS/HR. SCD'S IN PLACE. CALL LIGHT WITHIN REACH. BED IN LOWEST POSITION. WILL CONTINUE TO MONITOR.
--- NOTE | 2016-11-23 03:00 | NUR ---
REASSESSMENT COMPLETED PER FLOW SHEET, SEE FOR DETAILS. NO ACUTE CHANGES NOTED. PT IS AWAKE AND ALERT, DENIES NEEDS AT THIS TIME. CALL LIGHT WITHIN REACH. BED IN LOWEST POSITION. WILL CONTINUE TO MONITOR.
--- NOTE | 2016-11-23 05:00 | NUR ---
PT LAYING IN BED AWAKE AND ALERT. DENIES NEEDS AT THIS TIME. CALL LIGHT WITHIN REACH. WILL CONTINUE TO MONITOR.
[2016-11-23 05:10] LABS: BASOPHILS 0.1 % (0-2); EOSINOPHILS 0 % (0-7); HEMATOCRIT 41.6 % (36.0-48.0); HEMOGLOBIN 13.6 g/dL (12-16); IMMATURE GRANULOCYTES 0.3 % (0-5); LYMPHOCYTES 10.2 % (15-50); MCH 29.8 pg (26.0-34.0); MCHC 32.7 g/dL (31.0-37.0); MCV 91.2 fL (80.0-100.0); MEAN PLATELET VOLUME 9.4 fL (7.4-10.4); MONOCYTES 12.5 % (2-11); NEUTROPHILS 76.9 % (40-80); PLATELET COUNT 331 10x3/uL (130-400); RBC 4.56 10x6/uL (4.00-5.40); RDW 16.9 % (11.5-14.5)
[2016-11-23 05:11] LABS: WBC 18.4 10x3/uL (4.8-10.8)
[2016-11-23 05:38] LABS: CALC OSMOLALITY 279 mosm/kg (275-300); CHLORIDE - SERUM 110 mmol/L (98-107); CREATININE - SERUM 0.4 mg/dL (0.6-1.3); GLUCOSE 87 mg/dL (74-106); SODIUM 141 mmol/L (136-145); UREA NITROGEN 12 mg/dL (7-18); eGFR NON AFRICAN AMERICAN > 90 mL/min (90-120)
--- NOTE | 2016-11-23 06:00 | NUR ---
NO VISITORS AT THIS TIME. DENIES NEEDS. CALL LIGHT WITHIN REACH. WILL CONTINUE TO MONITOR.
[2016-11-23 06:23] LABS: CALCIUM 6.9 mg/dL (8.5-10.1); CARBON DIOXIDE 19.3 mmol/L (21.0-32.0); POTASSIUM - SERUM 3.4 mmol/L (3.5-5.1)
--- NOTE | 2016-11-23 09:51 | NUR ---
* Is the patient Alert and Oriented? Yes 0 * How many steps to enter\exit or inside your home? 0 0 * PCP Dr. Atkinson 0 * Pharmacy [facility] by the track 0 * Preadmission Environment Home Alone 0 * ADLs Independent 0 * Equipment Bedside Commode Nebulizer Oxygen Rolling Walker Shower Chair Wheelchair 0 * List name and contact numbers for known caregivers / representatives who currently or will assist patient after discharge: Boyfriend - Jr Garrido [phone] Friend - Sarai Resendez [phone] 0 * Additional services required to return to the preadmission environment? No 0 * Can the patient safely return to the preadmission environment? Yes 0 * Has this patient been hospitalized within the prior 30 days at any hospital? No Patient Name: KARINE TALLEY Admission Status: Elective Accout number: [id number] Admission Date: 11-22-2016 : 1955 Admission Diagnosis: Attending: RAMIRO ROCKWELL Current LOS: 1 Anticipated DC Date: 11-28-2016 Planned Disposition: Home Primary Insurance: [facility] PRIVATE OPTIONS [facility] Discharge Planning Comments: CM met with patient to assess dc plans/needs. Patient states she lives alone and is independent with all ADL's & IADL's. She states she has had home health services in the past with [facility]. At home she wears O2 @ 2L PRN. Also has a nebulizer, SC, RW, & WC. At discharge, she will return home. She is agreeable to home health referral if necessary. She states her friend, Sarai Resendez, will stay with her a few days if needed. CM will follow & assist as needed. Towboat Engineer: Genny Almonte
--- NOTE | 2016-11-23 11:33 | NUR ---
UP IN CHAIR AT BEDSIDE TOLERATED WELL, SOME DIZZYNESS WHEN SITTING AT FIRST. AMBULATED TO CHAIR WITH ASSISTANCES. DRESSING DRY AND INTACT. NO BOWEL SOUNDS AUDIBLE. NO MORE PASSING GAS PER PATIENT. YELENA DRAIN COMPRESSED WITH BLOODY DRAINAGE. MONITOR SR ST. NG TO LOW INTERMITTEN STUCTION DARK BROWN DRAINAGE.
--- NOTE | 2016-11-23 16:04 | NUR ---
RICKETTS CATH DC'D TOLERATED WELL. ABD DRESSING DRY AND INTACT. RETURNED TO BED WITH ASSITANCES. REPORT CALLED TO JOSE, TO TRANSFER TO ROOM 2203 WHEN CLEAN. BY WHEEL CHAIR
--- NOTE | 2016-11-23 23:23 | NUR ---
ASSISTED PATIENT TO AND FROM THE BATHROOM. PATIENT VOIDED. PATIENT'S GAIT IS STEADY, SHE ONLY NEED ASSISTANCE WITH ALL OF THE LINES (NGT AND IV TUBING). PATIENT IS NOW BACK IN BED. DENIES FURTHER NEEDS AT THIS TIME. BED IN LOWEST POSITION, CALL LIGHT IN REACH. BED RAILS UP X'S 2.
[2016-11-24] VITALS: BP 120/62
[2016-11-24 04:00] VITALS: BP 157/67
[2016-11-24 04:44] LABS: HEMATOCRIT 38.4 % (36.0-48.0); HEMOGLOBIN 12.8 g/dL (12-16); MCH 29.9 pg (26.0-34.0); MCHC 33.3 g/dL (31.0-37.0); MCV 89.7 fL (80.0-100.0); MEAN PLATELET VOLUME 9.3 fL (7.4-10.4); PLATELET COUNT 293 10x3/uL (130-400); RBC 4.28 10x6/uL (4.00-5.40); WBC 25.1 10x3/uL (4.8-10.8)
[2016-11-24 05:04] LABS: CALCIUM 8.3 mg/dL (8.5-10.1); CARBON DIOXIDE 16.3 mmol/L (21.0-32.0); CHLORIDE - SERUM 107 mmol/L (98-107); CREATININE - SERUM 0.4 mg/dL (0.6-1.3); MAGNESIUM - SERUM 1.7 mg/dL (1.8-2.4); PHOSPHOROUS 1.6 mg/dL (2.5-4.9); POTASSIUM - SERUM 3.8 mmol/L (3.5-5.1); SODIUM 139 mmol/L (136-145); eGFR NON AFRICAN AMERICAN > 90 mL/min (90-120)
[2016-11-24 05:06] LABS: CALC OSMOLALITY 272 mosm/kg (275-300); GLUCOSE 70 mg/dL (74-106); UREA NITROGEN 5 mg/dL (7-18)
[2016-11-24 05:17] LABS: LYMPHOCYTES 20 % (15-50); MONOCYTES 7 % (2-11); NEUTROPHILS 70 % (40-80); PLATELET ESTIMATE NORMAL
[2016-11-24 07:59] VITALS: BP 150/60
[2016-11-24 11:46] VITALS: BP 175/64
--- NOTE | 2016-11-24 14:32 | NUR ---
NG TUBE HAS BEEN CLAMPED. PT REPORTS NO NAUSEA AND VOMITING AT THIS TIME. REPORTS 0/10 PAIN AT THIS TIME. NO OTHER NEEDS.
[2016-11-24 20:00] VITALS: BP 126/55
[2016-11-25] VITALS: BP 135/61
[2016-11-25 03:43] VITALS: BP 106/70
[2016-11-25 05:39] LABS: BASOPHILS 0.1 % (0-2); EOSINOPHILS 0.5 % (0-7); HEMATOCRIT 36.6 % (36.0-48.0); HEMOGLOBIN 12.3 g/dL (12-16); IMMATURE GRANULOCYTES 0.3 % (0-5); LYMPHOCYTES 9.5 % (15-50); MCH 29.4 pg (26.0-34.0); MCHC 33.6 g/dL (31.0-37.0); MEAN PLATELET VOLUME 9.5 fL (7.4-10.4); MONOCYTES 14.7 % (2-11); NEUTROPHILS 74.9 % (40-80); PLATELET COUNT 289 10x3/uL (130-400); RBC 4.18 10x6/uL (4.00-5.40); RDW 17.1 % (11.5-14.5)
[2016-11-25 05:44] LABS: MCV 87.6 fL (80.0-100.0); WBC 18.7 10x3/uL (4.8-10.8)
[2016-11-25 05:52] LABS: CALC OSMOLALITY 276 mosm/kg (275-300); CALCIUM 8.4 mg/dL (8.5-10.1); CARBON DIOXIDE 19.7 mmol/L (21.0-32.0); CHLORIDE - SERUM 108 mmol/L (98-107); CREATININE - SERUM 0.4 mg/dL (0.6-1.3); GLUCOSE 81 mg/dL (74-106); MAGNESIUM - SERUM 1.8 mg/dL (1.8-2.4); PHOSPHOROUS 1.8 mg/dL (2.5-4.9); POTASSIUM - SERUM 3.3 mmol/L (3.5-5.1); SODIUM 141 mmol/L (136-145); eGFR NON AFRICAN AMERICAN > 90 mL/min (90-120)
[2016-11-25 05:53] LABS: UREA NITROGEN 3 mg/dL (7-18)
[2016-11-25 08:18] VITALS: BP 136/61
--- NOTE | 2016-11-25 12:20 | NUR ---
NUTRITION F/U CHART REVIEWED. DIET ADVANCED TO REG. WILL HONOR FOOD PREFERENCES, MONITOR INTAKE. RD FOLLOWING
[2016-11-25 13:03] VITALS: BP 136/63
[2016-11-25 16:21] VITALS: BP 154/60
--- NOTE | 2016-11-25 18:39 | NUR ---
DISCHARGE INSTRUCTIONS,STATES UNDERSTANDING.IV DCD WITH CATH INTACT.LEFT UNIT VIA WHEELCAHSIR FOR TRANSPORT HOME.
== END 2016-11-25 18:39 | disposition home or self-care (01) | DRG 406 ==
LOC: D.ICU 05:28 → D.SDCHOLD 05:28 → D.MS 05:28 → D.SDCHOLD 09:30 → D.ICU 15:47 → D.MS 11-23 17:23
PROVIDERS: ADMIT Surgery
PROC: 07BP4ZZ Excision of Spleen, Percutaneous Endoscopic Approach (ICD-10-PCS; 2016-11-22)
PROC: 0DTF4ZZ Resection of Right Large Intestine, Percutaneous Endoscopic Approach (ICD-10-PCS; principal; 2016-11-22 09:30)
PROC: 0FBG4ZZ Excision of Pancreas, Percutaneous Endoscopic Approach (ICD-10-PCS; 2016-11-22 09:30)
DX: K86.9 Disease of pancreas, unspecified (principal); D78.01 Intraoperative hemorrhage and hematoma of the spleen complicating a procedure on the spleen; K63.5 Polyp of colon; E83.39 Other disorders of phosphorus metabolism; E83.42 Hypomagnesemia; R00.0 Tachycardia, unspecified; J44.9 Chronic obstructive pulmonary disease, unspecified; I25.10 Atherosclerotic heart disease of native coronary artery without angina pectoris; I10 Essential (primary) hypertension

== ENCOUNTER 2016-12-17 11:03 | Emergency (ER) | payer MEDICAID ==
[2016-11-23 10:21] VITALS: BMI 19.6
== END 2016-12-17 12:23 | disposition left against medical advice (07) ==
LOC: D.ER 11:03
DX: S31.101A Unspecified open wound of abdominal wall, left upper quadrant without penetration into peritoneal cavity, initial encounter (principal); X58.XXXA Exposure to other specified factors, initial encounter; Y93.89 Activity, other specified; Y92.029 Unspecified place in mobile home as the place of occurrence of the external cause

== ENCOUNTER → 2016-12-23 07:58 | Outpatient (CLI) | payer MEDICAID ==
[2016-11-23 10:21] VITALS: BMI 19.6
[2016-12-23 08:54] LABS: ALBUMIN 3.1 g/dL (3.4-5.0); PROTEIN - SERUM 8.5 g/dL (6.4-8.2)
[2016-12-23 08:58] LABS: BILIRUBIN - INDIRECT 0.06 mg/dL (0.00-1.00); BILIRUBIN - TOTAL 0.06 mg/dL (0.2-1.3)
== END | disposition home or self-care (01) ==
LOC: D.US 12-09 09:30
PROVIDERS: Internal Medicine Gastroenterology
DX: K76.0 Fatty (change of) liver, not elsewhere classified (principal)

== ENCOUNTER → 2017-01-25 09:02 | Outpatient (CLI) | payer MEDICAID ==
[2016-11-23 10:21] VITALS: BMI 19.6
== END | disposition home or self-care (01) ==
LOC: D.US 09:02
DX: R10.9 Unspecified abdominal pain (principal)

== ENCOUNTER → 2017-02-13 08:03 | Outpatient (CLI) | payer MEDICAID ==
[2016-11-23 10:21] VITALS: BMI 19.6
== END | disposition home or self-care (01) ==
LOC: D.CT 02-09 10:00
DX: R93.5 Abnormal findings on diagnostic imaging of other abdominal regions, including retroperitoneum (principal)

== ENCOUNTER → 2017-05-19 07:41 | Outpatient (CLI) | payer MEDICAID ==
[2016-11-23 10:21] VITALS: BMI 19.6
== END | disposition home or self-care (01) ==
LOC: D.US 07:41
DX: R14.0 Abdominal distension (gaseous) (principal); R63.5 Abnormal weight gain

== ENCOUNTER → 2017-05-26 12:56 | Outpatient (CLI) | payer MEDICAID ==
[2016-11-23 10:21] VITALS: BMI 19.6
== END | disposition home or self-care (01) ==
LOC: D.US 12:56
DX: M79.605 Pain in left leg (principal); M79.604 Pain in right leg; I73.9 Peripheral vascular disease, unspecified

== ENCOUNTER → 2017-09-14 07:35 | Outpatient (CLI) | payer MEDICARE, MEDICAID ==
[2016-11-23 10:21] VITALS: BMI 19.6
--- NOTE | ~2017-09-14 | EC ---
PATIENT:KARINE CUETO DATE OF SERVICE: 09/14/17 SEX: F MEDICAL RECORD: [id number] DATE OF : [birth year] LOCATION:D.RT AGE OF PATIENT: 62 ADMISSION DATE: 09/14/17 REFERRING PHYSICIAN: INTERPRETING PHYSICIAN: UTE ARANGO MD ECHOCARDIOGRAM REPORT ECHO CHARGES 4 ECHO COMPLETE Date: 09/14 CLINICAL DIAGNOSIS: COPD/ ASSESS EF HX OF CAD/STENTS/HTN ECHOCARDIOGRAPHIC MEASUREMENTS (adult normal given) AC root (d.<3.7cm) 3.0 cm LV Septum d (<1.2 cm> 1.2 cm Valve Excursion 1.6 cm LV Septum (systole) 1.6 cm Left Atria (s.<4.0cm> 3.3 cm LVPW d(<1.2cm) 1.4 cm RV (d.<2.3cm) 3.4 cm LVPW (sytole) 1.7 cm LV diastole(<5.6CM) 2.9 cm MV E-F(>70mm/sec) cm LV systole 1.6 cm LVOT Diameter 1.5 cm MV exc.(>10mm) 1.5 cm Est.ejection fraction (50-75%) % DOPPLER: LVIT cm/sec A 98.0 cm/sec E 54.0 cm/sec LA cm/sec RVSP 39 mmHg LVOT 131 cm/sec AOP1/2T 459 m/s Asc. Ao 169 cm/sec RVOT 100 cm/sec RA cm/sec PA 112 cm/sec AV Gradient Peak 11.42mmHg AV Mean 7.28 mmHg AV Area 1.5 cm MV Gradient Peak 4.82 mmHg MV Mean 2.57 mmHg MV Area cm COMMENTS: Fire Alarm Operator: Cesar THOMPSNO Senior Back End Java Developer: 1 Dr. Arango TAPE# PACS Pericardial Effusion N DATE OF SERVICE: 09/14/2017 PROCEDURE: Echocardiogram. FINDINGS: 1. Left ventricular chamber size is within normal limits. Left ventricular systolic function is normal. Overall ejection fraction estimated at 65%. 2. Left atrium, right atrium, and right ventricle chamber sizes are within normal limits. 3. Valvular structures have normal structure and motion. ECHOCARDIOGRAM REPORT [id number] KARINE CUETO AN 4. Doppler interrogation reveals mild aortic insufficiency, mild mitral regurgitation, mild tricuspid regurgitation, no other valvular insufficiency or stenosis and pulmonary systolic pressure is estimated at 39 mmHg. 5. No evidence of pericardial effusion or left ventricular thrombus. TRANSINT:[id number] Voice Confirmation ID: [id number] DOCUMENT ID: [id number] UTE ARANGO MD at 1710 CC: [id number] DICTATION DATE: 09/14/17 1348 MERCHANDISING LEAD: 09/14/17 1503 REG [facility] [address] [place] [place] [id number]
== END | disposition home or self-care (01) ==
LOC: D.RT 07:35
DX: J44.9 Chronic obstructive pulmonary disease, unspecified (principal)

== ENCOUNTER → 2017-11-22 22:20 | Outpatient (CLI) | payer MEDICARE ==
[2016-11-23 10:21] VITALS: BMI 19.6
== END | disposition home or self-care (01) ==
LOC: D.MAMMO 15:30
DX: Z12.31 Encounter for screening mammogram for malignant neoplasm of breast (principal)

== ENCOUNTER → 2018-01-04 18:05 | Outpatient (CLI) | payer MEDICARE ==
[2016-11-23 10:21] VITALS: BMI 19.6
== END | disposition home or self-care (01) ==
LOC: D.MAMMO 12-15 11:30
DX: R92.8 Other abnormal and inconclusive findings on diagnostic imaging of breast (principal)

== ENCOUNTER 2018-02-21 07:45 | Day surgery (SDC) | payer MEDICARE ==
[2018-02-20 13:19] LABS: BASOPHILS 0.2 % (0-2); EOSINOPHILS 0.7 % (0-7); HEMATOCRIT 50.9 % (36.0-48.0); IMMATURE GRANULOCYTES 0.2 % (0-5); LYMPHOCYTES 42.8 % (15-50); MCH 32.3 pg (26.0-34.0); MCHC 35.4 g/dL (31.0-37.0); MCV 91.4 fL (80.0-100.0); MEAN PLATELET VOLUME 9.1 fL (7.4-10.4); MONOCYTES 9.8 % (2-11); NEUTROPHILS 46.3 % (40-80); RBC 5.57 10x6/uL (4.00-5.40); RDW 14.4 % (11.5-14.5); WBC 15.2 10x3/uL (4.8-10.8)
[2018-02-20 13:22] LABS: PLATELET COUNT 360 10x3/uL (130-400)
[~2018-02-21] VITALS: Ht 160 cm; Wt 56.7 kg
[~2018-02-21 07:45] MED LIST changes: +MERIBIN5 MG PO; +NIFEDIPINE30 MG/BOT1 PO
[2018-02-21 08:09] VITALS: BP 126/80; Ht 160 cm; Wt 56.7 kg
== END 2018-02-21 14:10 | disposition home or self-care (01) ==
LOC: D.OPS 07:45 → D.PAN 08:50 → D.OPS 09:00
PROVIDERS: Obstetrics & Gynecology
DX: D07.2 Carcinoma in situ of vagina (principal); Z01.812 Encounter for preprocedural laboratory examination

== ENCOUNTER 2018-08-06 08:00 | Outpatient (CLI) | payer OTHER ==
[2018-02-21 08:09] VITALS: BMI 22.1
== END 2018-08-06 09:00 | disposition home or self-care (01) ==
LOC: D.MAMMO 08:00
PROVIDERS: ATTEND Family Medicine
DX: R92.8 Other abnormal and inconclusive findings on diagnostic imaging of breast (principal)

== ENCOUNTER 2018-08-21 07:21 | Outpatient (CLI) | payer OTHER ==
[~2018-08-21] VITALS: Ht 160 cm; Wt 56.8 kg
[2018-08-21 07:57] LABS: CALC OSMOLALITY 278 mosm/kg (275-300); CALCIUM 9.1 mg/dL (8.5-10.1); CARBON DIOXIDE 24.3 mmol/L (21.0-32.0); CHLORIDE - SERUM 103 mmol/L (98-107); CREATININE - SERUM 0.7 mg/dL (0.6-1.3); POTASSIUM - SERUM 4.3 mmol/L (3.5-5.1); SODIUM 137 mmol/L (136-145); UREA NITROGEN 20 mg/dL (7-18); eGFR NON AFRICAN AMERICAN 90 mL/min (90-120)
[2018-08-21 07:59] LABS: GLUCOSE 130 mg/dL (74-106)
[2018-08-21] MEDS ORDERED: PROBIOTIC1 EAC1 PO (08:11)
[2018-08-21] MEDS ORDERED: BAYER CHEWABLE81 MG PO (08:11)
[2018-08-21 08:17] LABS: HEMATOCRIT 49.4 % (36.0-48.0); HEMOGLOBIN 17.3 g/dL (12-16); LYMPHOCYTES 28.8 % (15-50); MCH 31.7 pg (26.0-34.0); MCV 90.5 fL (80.0-100.0); MEAN PLATELET VOLUME 8.8 fL (7.4-10.4); NEUTROPHILS 59.2 % (40-80); PLATELET COUNT 395 10x3/uL (130-400); RBC 5.46 10x6/uL (4.00-5.40); RDW 14.7 % (11.5-14.5); WBC 12.6 10x3/uL (4.8-10.8)
[2018-08-21 08:19] VITALS: BP 128/62; Ht 160 cm; Wt 56.8 kg
[2018-08-21 08:21] LABS: APTT 30.3 SECONDS (22.8-39.4); INR 1.06 (0.85-1.17); PROTIME 13.3 SECONDS (11.6-15.0)
--- NOTE | 2018-08-21 12:42 | NUR ---
1140 SEE POST PROCEDURE CHECKLIST FOR VITAL SIGN TRENDS.
--- NOTE | 2018-08-21 13:41 | NUR ---
1340 RELEASED IN [facility] HOME.
== END 2018-08-21 13:40 | disposition home or self-care (01) ==
LOC: D.SP 07:21 → D.CT 10:00 → D.SP 10:00
PROVIDERS: Radiology Vascular & Interventional Radiology; ATTEND Internal Medicine Hematology & Oncology
DX: D72.829 Elevated white blood cell count, unspecified (principal); Z01.812 Encounter for preprocedural laboratory examination

== ENCOUNTER → 2019-04-16 08:15 | Outpatient (CLI) | payer OTHER ==
[2018-08-21 08:19] VITALS: BMI 22.1
[~2019-04-16 08:15] MED LIST changes: +PROBIOTIC1 EAC1 PO
== END | disposition home or self-care (01) ==
LOC: D.CT 08:15
PROVIDERS: ATTEND Family Medicine
DX: I70.213 Atherosclerosis of native arteries of extremities with intermittent claudication, bilateral legs (principal)

== ENCOUNTER 2019-05-21 07:27 | Outpatient (CLI) | payer OTHER ==
[~2019-05-21] VITALS: Ht 160 cm; Wt 60.0 kg
--- NOTE | ~2019-05-21 | HEMODYNAMI ---
PATIENT:KARINE CUETO MEDICAL RECORD: [id number] : 59 LOCATION:[facility] ADMISSION DATE: 05/21/19 Generatedon:05/21/201910:10 Patient name: KARINE TALLEY Patient #: [id number] SSN: [id number] : 1955 Date of study: 05/21/2019 Page: Of Hemodynamic Procedure Report Patient Data Patient Demographics Procedure consent was obtained First Name: KARINE Gender: Female Last Name: GEETHA TALLEY : 1955 [facility] Initial: ADINA Age: 63 year(s) Patient #: [id number] Race: SSN: [id number] Additional ID: [id number] Contact details [address]: [address] [place] [address] State: [place] City: [place] Zip code: [address] Past Medical History History of disease Date Diagnosis Comments CAD Peripheral vascular disease Allergies: No allergy information Admission Admission Data Admission Date: 05/21/2019 Admission Time: 7:27 Admit Source: Other Height (in.): 63 BSA: 1.64 (m2) Height (cm.): 160.02 BMI: 23.91 (kg/m2) Weight (lbs.): 135 Weight (kg.): 61.23 Lab Results Lab Result Date: 05/21/2019 Lab Result Time: 0:00 Biochemistry Name Units Result Min Max BUN mg/dl 18 --(---*)-- 7 18 Creatinine mg/dl 0.7 --(*---)-- 0.6 1.3 eGFR ml/min 90 --(*---)-- 90 120 NONAFRICAN CBC Name Units Result Min Max Hematocrit % 48.9 --(--*-)-- 42 54 Hemoglobin g/dl 17.1 --(---*)-- 13.5 17.5 Procedure Procedure Types Cath Procedure Peripheral Cath Diagnostic Procedure Gm Mobile Peripheral Procedures AFRO (Diagnostic) Peripheral vascular Intervention Stent Stent-Fem/Popw/plasty Procedure Description Procedure Date Procedure Date: 05/21/2019 Procedure Start Time: 9:38 Procedure End Time: 10:05 Procedure Staff Name Function Fabian Arango MD Performing Physician Nella Baker RT Monitor Deborah Velasquez RT Scrub Luke Daily RN Nurse Shasta Arora RN Solar [employer] Procedure Data Cath Procedure Fluoroscopy Diagnostic fluoroscopy Total fluoroscopy Time: 7.9 time: 7.9 min min Diagnostic fluoroscopy Total fluoroscopy dose: 135 dose: 135 mGy mGy Contrast Material Contrast Material Type Amount (ml) Isovue [id number] 106 Entry Location Entry Primary Successful Side Size Upsize Upsize Entry Closure Succes sful Closure Location (Fr) 1 (Fr) 2 (Fr) Remarks Device Remarks Femoral Right 5 Fr 6 Fr Exoseal artery Long Estimated blood loss: 10 ml Diagnostic catheters Device Type Used For End Catheter Placement DIAGNOSTIC UF 5Fr Procedure catheter ([id number]) Procedure Complications No complications Procedure Medications Medication Administration Route Dosage 0.9% NaCl I.V. 100 ml/hr Oxygen etCO2 Nasal cannula 2 l/min Heparin Flush Bag added to field 2 bags (1000units/500ml NS) Lidocaine 2% added to field 20 Versed I.V. 2 mg Fentanyl I.V. 100 mcg Versed I.V. 2 mg Fentanyl I.V. 50 mcg Fentanyl I.V. 50 mcg Heparin Bolus I.V. 4000 units Hemodynamics Rest BSA: 1.64 (m2) HGB: 17.1 (g/dl) O2 Consumption: Estimated: 163.44 (ml/min) O2 Co nsumption indexed: Estimated:99.66 (ml/min/m) Heart Rate: 84 (bpm) Snapshots Pre Cath Intra NCS Post Cath Vital Signs Time Heart Resp SPO2 etCO2 NIBP (mmHg) Rhythm Pain Sedation Rate (ipm) (%) (mmHg) Status Level (bpm) 9:22:35 88 28 96 29.1 145/78(103) NSR 0 (11) 10(A) , No pain 9:26:49 84 21 94 28.3 125/67(87) NSR 0 (11) 10(A) , No pain 9:31:01 86 18 91 28.3 110/59(78) NSR 0 (11) 10(A) , No pain 9:35:11 80 14 92 11.2 104/54(80) NSR 0 (11) 10(A) , No pain 9:39:15 86 13 92 30.6 111/62(80) NSR 0 (11) 10(A) , No pain 9:43:20 85 11 91 36.6 115/64(104) NSR 0 (11) 9(A) , No pain 9:47:26 86 14 93 27.6 108/62(85) NSR 0 (11) 9(A) , No pain 9:51:30 87 13 92 31.4 116/62(90) NSR 0 (11) 9(A) , No pain 9:55:36 87 16 93 29.8 106/63(78) NSR 0 (11) 9(A) , No pain 9:59:40 89 13 92 33.6 105/63(78) NSR 0 (11) 9(A) , No pain 10:03:41 89 18 92 30.6 103/65(84) NSR 0 (11) 9(A) , No pain Medications Time Medication Route Dose Verified Delivered Reason Notes Effectiveness by by 9:23:16 0.9% NaCl I.V. 100 Luke Luke Per physician ml/hr Abimbola Daily RN RN 9:23:25 Oxygen etCO2 2 Luke Luke for low 02 sats Nasal l/min Abimbola Daily cannula RN RN 9:23:35 Heparin Flush added 2 Luke Luke used for Bag to bags Abimbola Daily procedure (1000units/500ml RN RN NS) 9:23:45 Lidocaine 2% added 20ml Luke Luke for local to vial Abimbola Daily anesthetic field ANDREWS RN 9:35:51 Versed I.V. 2 mg Luke Luke for sedation Abimbola Daily RN RN 9:35:59 Fentanyl I.V. 100 Luke Luke for sedation mcg Abimbola Daily RN RN 9:40:27 Versed I.V. 2 mg Luke Luke for sedation Abimbola Daily RN RN 9:40:33 Fentanyl I.V. 50 Luke Luke for sedation mcg Abimbola Daily RN RN 9:41:34 Fentanyl I.V. 50 Luke Luke for sedation mcg Abimbola Daily RN RN 9:47:07 Heparin Bolus I.V. 4000 Luke Luke for units Abimbola Daily anticoagulation RN senior animator Log Time Note 9:00:01 Informed consent obtained and on chart 9:00:21 Diagnostic Cath Status : Elective 9:00:50 Admit Source: Other 9:01:03 Procedure Status Peripheral. 9:01:05 Time tracking: Regular hours (M-F 7:00 - 5:00) 9:01:10 Plan of Care:Hemodynamics will remain stable., Cardiac rhythm will remain stable., Comfort level will be maintained., Respiratory function will remain adequate., Patient/ family verbilizes understanding of procedure., Procedure tolerated without complication., Recovers from procedure without complications.. 9:10:43 H&P Date Dictated: 05/14/2019 Within 30 days and on chart., H&P Addendum completed by physician on day of procedure. (MUST COMPLETE FOR ALL OUTPATIENTS). 9:10:50 Patient allergic to No allergy information 9:10:53 Nella Baker RT(R) sent for patient. Start room use. 9:16:51 Lab Result : BUN 18 mg/dl 9:16:51 Lab Result : Creatinine 0.7 mg/dl 9:16:51 Lab Result : Hemoglobin 17.1 g/dl 9:16:51 Lab Result : eGFR NONAFRICAN 90 ml/min 9:16:51 Lab Result : Hematocrit 48.9 % 9:17:02 Patient received from Pre/Post Procedure Room to CCL 1 Alert and oriented. Tansferred to table in Supine position. 9:17:03 Warm blankets applied, and paul hugger turned on for patient comfort. 9:17:03 Correct patient and procedure confirmed by team. 9:17:04 ECG and BP/O2 sat monitors applied to patient. 9:21:28 Vital chart was started 9:21:34 Baseline sample Acquired. 9:21:37 Rhythm: sinus rhythm 9:21:38 Full Disclosure recording started 9:21:38 Pre-procedure instructions explained to patient. 9:21:39 Pre-op teaching completed and patient verbalized understanding. 9:21:40 Family in patients room. 9:21:41 Patient NPO since Midnight. 9:21:43 Is the patient allergic to Iodine/contrast media? No. 9:21:44 Is patient on blood thinner?Yes 9:21:48 ACC The patient was administered the following blood thiners within the last 24 hours: ACCPlavix 9:22:15 Patient diabetic? Yes. 9:22:16 If diabetic: On Metformin? Yes 9:22:26 If on Metformin: Last Dose? 05/20/2019 9:22:35 Previous problem with sedation/anesthesia? No ? 9:22:37 Snore? Yes 9:22:38 Sleep apnea? No 9:22:39 Deviated septum? No 9:22:40 Opens mouth fully? Yes 9:22:41 Sticks out tongue? Yes 9:22:44 Airway obstruction? No ? 9:22:46 Dentures? No ? 9:22:50 Pre procedure: right dorsailis pedis pulse Doppler 9:22:53 Pre procedure: left dorsailis pedis pulse Doppler 9:22:57 Patient pain scale 0/10 ?. 9:23:08 IV patent on arrival in left antecubital with 0.9% NaCl at [facility]. 9:23:15 Lab results completed and on chart. 9:23:16 0.9% NaCl 100 ml/hr I.V. was administered by Luke Daily RN; Per physician; Verbal order read back and verified. 9:23:20 Bilateral groins area was prepped with chlora-prep and draped in sterile fashion 9:23:20 Alarms reviewed by R. N. 9:23:21 Sharps counted by scrub and verified by R.N. 9:23:21 Sharps counted by scrub and verified by R.N. 9:23:25 Oxygen 2 l/min etCO2 Nasal cannula was administered by Luke Daily RN; for low 02 sats; Verbal order read back and verified. 9:23:35 Heparin Flush Bag (1000units/500ml NS) 2 bags added to field was administered by Luke Daily RN; used for procedure; Verbal order read back and verified. 9:23:45 Lidocaine 2% 20ml vial added to field was administered by Luke Daily RN; for local anesthetic; Verbal order read back and verified. 9:24:15 PT. STATES LEFT LEG HURTS WORSE. STATES HAD SCAN AND BOTH HAVE CLAUDICATION 9:24:33 Use device set CATH PACK 9:24:35 ACIST Syringe (68547) opened to sterile field. 9:24:35 ACIST Hand Control (28634) opened to sterile field. 9:24:35 ACIST Manifold (60173) opened to sterile field. 9:24:36 Medline Cath Pack ([id number]) opened to sterile field. 9:24:36 Bag Decanter (2002S) opened to sterile field. 9:24:37 EMERALD Guide Wire (004-024) opened to sterile field. 9:24:46 SHEATH 5FR [place] ([id number]) opened to sterile field. 9:25:48 Patient Weight : 135 lbs 9:25:50 Patient Height : 63 inches 9:34:06 Zero performed for pressure channel P1 9:35:17 --------ALL STOP TIME OUT------ 9:35:17 Final Timeout: patient, procedure, and site verified with staff and physician. All members of the team are in agreement. 9:35:19 Bilateral groins site verified by team. 9:35:21 Fire Safety Assessment: A--An alcohol-based skin anteseptic being used preoperatively., C--Open oxygen or nitrous oxide is being used., D--An ESU, laser, or fiber-optic light is being used. 9:35:24 Physical assessment completed. ASA score P 2 - A patient with mild systemic disease as per Fabian Arango MD. 9:35:26 1) 90+ Normal kidney functon but urine findings or structural abnormalities or genetic trait point to kidney disease. 9:35:29 Maximum allowable contrast dose (3.7 X eGFR X 0.75)250 ml. 9:35:32 Sedation plan: IV Moderate Sedation Medication:Versed, Fentanyl 9:35:51 Versed 2 mg I.V. was administered by Luke Daily RN; for sedation; Verbal order read back and verified. 9:35:59 Fentanyl 100 mcg I.V. was administered by Luke Daily RN; for sedation; Verbal order read back and verified. 9:38:44 Procedure started. 9:38:58 Local anesthetic to right femoral artery with Lidocaine 2% by Fabian Arango MD.INITIAL ACCESS ONLY 9:40:27 Versed 2 mg I.V. was administered by Luke Daily RN; for sedation; Verbal order read back and verified. 9:40:33 Fentanyl 50 mcg I.V. was administered by Luke Lorigan RN; for sedation; Verbal order read back and verified. 9:41:34 Fentanyl 50 mcg I.V. was administered by Luke Daily RN; for sedation; Verbal order read back and verified. 9:42:04 A 5 Fr sheath was inserted into the Right Femoral artery 9:42:21 A DIAGNOSTIC UF 5Fr catheter ([id number]) was advanced over the wire and used for Procedure. 9:43:37 Abdominal angiogram w/ runoff was performed. 9:43:42 Left leg runoff performed. 9:43:55 Right leg runoff performed. 9:44:01 Catheter exchanged over wire. 9:44:18 GLIDE WIRE Super Stiff Angled 260cm ([id number]) opened to sterile field. 9:44:38 GLIDE WIRE USED TO ADVANCE AROUND THE HORN 9:44:40 UF EXCHANGED OVER THE WIRE 9:44:49 SHEATH 6FR Destination (RSR01) opened to sterile field. 9:44:55 INFLATOR Merit BasixCompak ([id number]) opened to sterile field. 9:44:59 SHEATH 6FR [place] (POB439) opened to sterile field. 9:45:09 Sheath upsized to a 6 Fr Long. 9:46:33 LONG SHEATH ADVANCED AROUND THE HORN 9:47:07 Heparin Bolus 4000 units I.V. was administered by Luke Daily RN; for anticoagulation; Verbal order read back and verified. 9:47:09 CHOICE PT Extra Support J 300cm guide wire ([id number]) opened to sterile field. 9:48:14 CHOICE ES 300 wire advanced. 9:50:00 Inflate balloon Inflation number: 1 A SABER 5.0 X 4 X 150 balloon ([id number]) was prepped and advanced across the Proximal Common Femoral, Left , then inflated to 7 LUIZ for 0:00 (min:sec) . 9:50:25 Inflation number: 1 The SABER 5.0 X 4 X 150 balloon ([id number]) was reinflated across the Distal Common Femoral, Left , to 7 LUIZ for 0:00 (min:sec) . 9:50:42 Balloon removed over the wire. 9:54:13 SMART Flex 5 X 40 X 120 stent ([id number]) was deployed across Proximal Common Femoral, Left . 9:55:10 Stent catheter was removed intact over wire. 9:56:20 SMART Flex 5 X 60 X 120 stent ([id number]) was deployed across Distal Common Femoral, Left . 9:56:37 Stent catheter was removed intact over wire. 9:58:07 Inflation number: 2 The SABER 5.0 X 4 X 150 balloon ([id number]) was reinflated across the Distal Common Femoral, Left , to 9 LUIZ for 0:00 (min:sec) . 9:58:23 Inflation number: 3 The SABER 5.0 X 4 X 150 balloon ([id number]) was reinflated across the Distal Common Femoral, Left , to 9 LUIZ for 0:00 (min:sec) . 9:58:52 Inflation number: 2 The SABER 5.0 X 4 X 150 balloon ([id number]) was reinflated across the Proximal Common Femoral, Left , to 10 LUIZ for 0:00 (min:sec) . 9:59:04 Balloon removed over the wire. 10:00:16 Wire removed. 10:01:04 LONG SHEATH EXCHANGED FOR A SHORT SHEATH 10:02:15 EXOSEAL 6Fr (EX600) opened to sterile field. 10:02:26 Sheath removed intact; hemostasis achieved with Exoseal to the Right Femoral artery. 10:02:35 Procedure ended.(Physican Out) 10:03:18 Fluoroscopy time 07.90 minutes. 10:03:22 Fluoroscopy dose: 135 mGy 10:03:22 Flurop Dose total: 135 10:03:28 Dose Area Product 26375 mGy/cm. 10:03:31 ACT drawn and resulted at 328 seconds. (normal therapeutic range 180-240 seconds). 10:03:36 Contrast amount:Isovue 370 106ml. 10:03:38 Maximum allowable dose exceeded? No. 10:03:40 Sharps counted by scrub and verified by R.N. 10:03:44 Post-op/insertion site Right Femoral artery dressed using a 4 x 4 and Tegaderm. 10:03:46 Post-procedure physical assessment completed. ASA score P 2 - A patient with mild systemic disease as per Fabian Arango MD. 10:03:49 Post procedure rhythm: sinus rhythm 10:03:51 Estimated blood loss: 10 ml 10:03:53 Post procedure instruction explained to patient.Patient verbalizes understanding. 10:03:53 Patient needs reinforcement of post procedure teaching. 10:04:48 Procedure type changed to Cath procedure, Peripheral Cath Diagnostic Procedure, Gm Mobile Peripheral Procedures, AFRO (Diagnostic), Peripheral vascular Intervention, Stent, Stent-Fem/Popw/plasty 10:05:34 Procedure and supply charges have been captured, reviewed, submitted and are correct. 10:05:36 Procedure Complication : No complications 10:05:38 Vital chart was stopped 10:05:40 AFRO Findings: PVD: MILLING MACHINIST performed (see procedure notes) 10:05:42 Operative report dictated upon procedure completion. 10:05:42 See physician's report for complete and final results. 10:05:43 Report given to Pre/Post Procedure Room. 10:05:46 Patient transfered to Pre/Post Procedure Room with Bed. 10:05:47 Procedure ended. 10:05:47 Full Disclosure recording stopped 10:05:51 End room use (Document Last) 10:06:01 ACC-PCI Only Patient was given prescriptions, or instructed by Fabian Arango MD to start/continue the following medications upon discharge: Plavix Intervention Summary Intervention Notes Time ActionType Lesion and Equipment Action# Pressure Duration Attributes Used 9:50:00 Inflate Proximal SABER 5.0 X 1 7 00:00 balloon Common 4 X 150 Femoral, balloon Left ([id number]) 9:50:25 Reinflate Distal SABER 5.0 X 1 7 00:00 balloon Common 4 X 150 Femoral, balloon Left ([id number]) 9:54:13 Deploy self Proximal SMART Flex 1 expanding Common 5 X 40 X stent Femoral, 120 stent Left ([id number]) 9:56:20 Deploy self Distal SMART Flex 1 expanding Common 5 X 60 X stent Femoral, 120 stent Left ([id number]) 9:58:07 Reinflate Distal SABER 5.0 X 2 9 00:00 balloon Common 4 X 150 Femoral, balloon Left ([id number]) 9:58:23 Reinflate Distal SABER 5.0 X 3 9 00:00 balloon Common 4 X 150 Femoral, balloon Left ([id number]) 9:58:52 Reinflate Proximal SABER 5.0 X 2 10 00:00 balloon Common 4 X 150 Femoral, balloon Left ([id number]) Device Usage Item Name Manufacture Quantity Catalog Number Hospital Part Current Minim al Lot# / Charge Number Stock Stock Serial# Code ACIST Acist 1 01924 026681 716930 060581 20 Syringe Medical (56450) Systems Inc ACIST Hand Acist 1 21742 116147 904115 872074 5 Control Medical (09284) Systems Inc ACIST Acist 1 84175 282456 549823 949703 5 Manifold Medical (60916) Systems Inc Medline Medline 1 [id number] 703220 02352 825941 5 Cath Pack ([id number]) Bag Microtek 1 380937 85697 160815 5 Decanter Medical Inc. () EMERALD Cardinal 1 502-455 970905 137864 815494 5 Guide Wire Health (502-455) SHEATH 5FR Terumo 1 UYW931 021316 255192 667736 5 [place] (KJD044) DIAGNOSTIC Cardinal 1 [id number] 425950 799996 476410 10 UF 5Fr Health catheter ([id number]) GLIDE WIRE Terumo 1 TK7591 417012 375054 554286 5 Super Stiff Angled 260cm (LF7211) SHEATH 6FR Terumo 1 RSR01 249878 33842 749910 5 Destination (RSR01) INFLATOR Merit 1 TT6965 225434 968096 924093 15 Merit Medical BasixCompak (GW5289) SHEATH 6FR Terumo 1 QMI372 850997 489941 138921 40 [place] (JEM740) CHOICE PT [place] 1 [id number] 968592 506945 670731 5 Extra Scientific Support J 300cm guide wire ([id number]) SABER 5.0 X Cardinal 1 [id number] 348151 156816 5 4 X 150 Health balloon ([id number]) SMART Flex Cardinal 1 [id number] 415405 173247 928978 0 5 X 40 X Health 120 stent ([id number]) SMART Flex Cardinal 1 [id number] 235080 787813 471042 0 5 X 60 X Health 120 stent ([id number]) EXOSEAL 6Fr Cardinal 1 EX600 074397 613555 877292 10 (EX600) Health Signature Audit [place] Stage Time Signature Unsigned Intra-Procedure 05/21/2019 Nella Olivia 10:10:06 AM RT(R) Intra-Procedure 05/21/2019 Luke 10:10:22 AM Abimbola ANDREWS Intra-Procedure 05/21/2019 Fabian Arango 10:10:48 AM [place] [address] [place] [address]
[2019-05-21 08:16] VITALS: BP 135/63; Ht 160 cm; Wt 60.0 kg
[2019-05-21 08:34] LABS: BASOPHILS 0.3 % (0-2); EOSINOPHILS 1.1 % (0-7); HEMATOCRIT 48.9 % (36.0-48.0); HEMOGLOBIN 17.1 g/dL (12-16); IMMATURE GRANULOCYTES 0.3 % (0-5); LYMPHOCYTES 33.5 % (15-50); MCV 91.4 fL (80.0-100.0); MONOCYTES 13.5 % (2-11); NEUTROPHILS 51.3 % (40-80); PLATELET COUNT 406 10x3/uL (130-400); RBC 5.35 10x6/uL (4.00-5.40)
[2019-05-21 08:48] LABS: ALT (SGPT) 63 U/L (10-68); CALC OSMOLALITY 272 mosm/kg (275-300); CARBON DIOXIDE 24.5 mmol/L (21.0-32.0); CHLORIDE - SERUM 103 mmol/L (98-107); CHOL - HDL RATIO 6.3 ratio (2.3-4.1); CHOLESTEROL, TOTAL 208 mg/dL (0-200); CREATININE - SERUM 0.7 mg/dL (0.6-1.3); GLUCOSE 121 mg/dL (74-106); HDL CHOLESTEROL 33 mg/dL (32-96); POTASSIUM - SERUM 4.2 mmol/L (3.5-5.1); SODIUM 135 mmol/L (136-145); TRIGLYCERIDE 427 mg/dL (30-200); UREA NITROGEN 18 mg/dL (7-18); eGFR NON AFRICAN AMERICAN 90 mL/min (90-120)
--- NOTE | 2019-05-21 10:15 | NUR ---
REC'D TO ROOM 12 VIA STRETCHER, S/P CARDIOLOGIST. MONITORS ESTAB. FRIEND AT BS - SEE HEAD CUSTODIAN. ALARMS ON AND C/L IN REACH.
--- NOTE | 2019-05-21 10:30 | NUR ---
R GROIN SITE C/D/I, NO S/S BLEEDING OR HEMATOMA. NO CHANGE IN PEDAL PULSES. VSS. C/L IN REACH.
--- NOTE | 2019-05-21 10:45 | NUR ---
R GROIN SITE C/D/I, NO S/S BLEEDING OR HEMATOMA. PULSES PALP R WEAKER THAN L. VSS, ALARMS ON. FRIEND REMAINS AT BS.
--- NOTE | 2019-05-21 11:00 | NUR ---
PT REMINDED OF IMPORTANCE TO KEEP R LEG STRAIGHT. R GROIN SITE C/D/I.
--- NOTE | 2019-05-21 11:26 | NUR ---
DR. SANDOVAL IN TO SEE PT. PLAN TO COME BACK NEXT WED FOR R SIDE.. R GROIN SITE C/D/I, PEDAL PULSES PALP - UNCHANGED.
--- NOTE | 2019-05-21 11:55 | NUR ---
SPOKE WITH NAIDA - PROCEDURE SCHEDULED FOR 999MAY 28 - PRE PROCEURE FORM TO PT - PT WILL ARRIVE AT 0800.
--- NOTE | 2019-05-21 12:27 | NUR ---
R GROIN SITE C/D/I, NO S/S BLEEDING OR HEMATOMA. PULSES PALP. VSS.
--- NOTE | 2019-05-21 13:00 | NUR ---
R GROIN SITE C/D/I, HOB UP. GIVEN SANDWICH TRAY PER REQUEST. FRIEND AT BS. VSS. C/L IN REACH.
--- NOTE | 2019-05-21 13:30 | NUR ---
R GROIN SITE C/D/I. PT ATE SANDWICH WITH OUT DIFFICULTY. VSS.
--- NOTE | 2019-05-21 13:50 | NUR ---
R GROIN SITE C/D/I. PIV D/C'D INTACT, DSG APPLIED. PT ALLOWED UP TO GET DRESSED.
--- NOTE | 2019-05-21 14:00 | NUR ---
PT UP TO BR VIA WC.
--- NOTE | 2019-05-21 14:05 | NUR ---
ALL DISCHARGE INSTRUCTIONS INCLUDING PHYSICAL RESTRICTIONS, MEDS AND PLAN FOR PROCEDURE NEXT WED. PT D/C'D VIA WC TO PRIVATE VEHICLE WITH ALL PAPER WORK AND BELONGINGS.
--- NOTE | 2019-05-23 16:48 | OP ---
PATIENT NAME: KARINE CUETO MEDICAL RECORD: [id number] :59 LOCATION:D.CAT ADMISSION DATE: SURGEON: UTE SANDOVAL MD DATE OF OPERATION: 05/21/2019 PROCEDURES: 1. YIELD ENGINEER stent left SFA. 2. Aortofemoral runoff. 3. Abdominal aortography. INDICATION: Claudication and peripheral vascular disease. DESCRIPTION OF PERFORMED: After informed consent was obtained and after detailed explanation of risks, benefits as well as alternative therapies, the patient elected to proceed with angiogram and angioplasty. The right femoral area was prepped and draped in normal sterile fashion. Right femoral artery was cannulated via modified Seldinger technique with placement of a 6-Togolese cuynmy-moz-slke sheath. All catheters exchanged through this sheath. FINDINGS: The abdominal aortography was performed. The catheter was pulled down for aortofemoral runoff. Abdominal aortography reveals no significant abdominal aortic disease, no dissection or aneurysm formation. RIGHT LEG: A. Iliac: The common internal and external iliacs have mild irregularities, but no flow-limiting stenosis. B. Femoral system: The common and deep femoral have mild irregularities. Superficial femoral has a 90% stenosis in the mid distal vessel. C. Popliteal and infrapopliteal vessels are patent with good 3-vessel runoff to the foot. LEFT LEG: A. Iliac: The common internal and external iliacs have mild irregularities, but no flow-limiting stenosis. B. Femoral system: The common and deep femoral are widely patent. Superficial femoral has 95% stenosis times 2. C. Popliteal and infrapopliteal vessels are widely patent good 3-vessel runoff to the foot. YIELD ENGINEER STENT OF THE LEFT SFA: The balloon used was a 5.0 balloon yielding suboptimal result with severe intimal dissection. Stenting was undertaken with a 5 x 60 SMART and a 5 x 40 SMART stent. Result was 0% residual stenosis. OVERALL IMPRESSION: Successful percutaneous transluminal angioplasty stent of the left superficial femoral artery going from 95% initial stenosis to 0% residual stenosis. PLAN: For YIELD ENGINEER stent of the right SFA in the near future. TRANSINT:[id number] Voice Confirmation ID: [id number] DOCUMENT ID: [id number] OPERATIVE REPORT [id number] KARINE CUETO AN UTE SANDOVAL MD at 6924 CC: [id number] DICTATION DATE: 05/21/19 1005 WHEAT FARMER: 05/21/19 1151 DEP CLI 05/21/19 [place] [id number] [place] [id number]
== END 2019-05-21 14:05 | disposition home or self-care (01) ==
LOC: D.CATH 07:27
PROVIDERS: ATTEND Internal Medicine Interventional Cardiology
DX: I70.212 Atherosclerosis of native arteries of extremities with intermittent claudication, left leg (principal); E78.5 Hyperlipidemia, unspecified; I10 Essential (primary) hypertension; R07.9 Chest pain, unspecified; I25.10 Atherosclerotic heart disease of native coronary artery without angina pectoris; I73.9 Peripheral vascular disease, unspecified

== ENCOUNTER 2019-05-29 08:04 | Outpatient (CLI) | payer OTHER ==
[~2019-05-29] VITALS: Ht 160 cm; Wt 59.1 kg
--- NOTE | ~2019-05-29 | HEMODYNAMI ---
PATIENT:KARINE CUETO MEDICAL RECORD: [id number] : 59 LOCATION:[facility] ADMISSION DATE: 05/29/19 Generatedon:05/29/201910:43 Patient name: KARINE TALLEY Patient #: [id number] SSN: [id number] : 1955 Date of study: 05/29/2019 Page: Of Hemodynamic Procedure Report Patient Data Patient Demographics Procedure consent was obtained First Name: KARINE Gender: Female Last Name: GEETHA TALLEY : 1955 [facility] Initial: ADINA Age: 63 year(s) Patient #: [id number] Race: SSN: [id number] Additional ID: [id number] Contact details [address]: [address] [place] [address] State: [place] City: [place] Zip code: [address] Past Medical History History of disease Date Diagnosis Comments CAD Peripheral vascular disease Allergies: No known allergies Admission Admission Data Admission Date: 05/29/2019 Admission Time: 8:04 Arrival Date: 05/29/2019 Arrival Time: 0:00 Admit Source: Other Insurance Payor: Private health insurance HIC #: [id number] Height (in.): 63 BSA: 5.27 (m2) Height (cm.): 160.02 BMI: 374.52 (kg/m2) Weight (lbs.): 2114.24 Weight (kg.): 959 Lab Results Lab Result Date: 05/29/2019 Lab Result Time: 0:00 Biochemistry Name Units Result Min Max BUN mg/dl 16 --(---*)-- 7 18 Creatinine mg/dl 0.7 --(*---)-- 0.6 1.3 eGFR ml/min 90 --(*---)-- 90 120 NONAFRICAN CBC Name Units Result Min Max Hematocrit % 48.6 --(--*-)-- 42 54 Hemoglobin g/dl 16.9 --(---*)-- 13.5 17.5 Procedure Procedure Types Cath Procedure Peripheral Cath Diagnostic Procedure Service Member Peripheral Procedures Wbatv-Fxgjzhw-Spo-Off Peripheral vascular Intervention Stent Stent-Fem/Popw/plasty Procedure Description Procedure Date Procedure Date: 05/29/2019 Procedure Start Time: 10:18 Procedure End Time: 10:40 Procedure Staff Name Function Fabian Arango MD Performing Physician Norah Roberts RT Monitor Deborah Velasquez RT Scrub Luke Daily RN Nurse Procedure Data Cath Procedure Fluoroscopy Diagnostic fluoroscopy Total fluoroscopy Time: 5.6 time: 5.6 min min Diagnostic fluoroscopy Total fluoroscopy dose: 72 dose: 72 mGy mGy Contrast Material Contrast Material Type Amount (ml) Isovue 300 51 Entry Location Entry Primary Successful Side Size Upsize Upsize Entry Closure Succes sful Closure Location (Fr) 1 (Fr) 2 (Fr) Remarks Device Remarks Femoral Right 6 Fr Exoseal artery Short Estimated blood loss: 5 ml Diagnostic catheters Device Type Used For End Catheter Placement DIAGNOSTIC UF 5Fr Procedure catheter ([id number]) Procedure Complications No complications Procedure Medications Medication Administration Route Dosage 0.9% NaCl I.V. 100 ml/hr Oxygen etCO2 Nasal cannula 2 l/min Heparin Flush Bag added to field 2 bags (1000units/500ml NS) Lidocaine 2% added to field 20 Versed I.V. 2 mg Fentanyl I.V. 100 mcg Versed I.V. 1 mg Versed I.V. 1 mg Heparin Bolus I.V. 4000 units Fentanyl I.V. 50 mcg Hemodynamics Rest BSA: 5.27 (m2) HGB: 16.9 (g/dl) O2 Consumption: Estimated: 716.72 (ml/min) O2 Co nsumption indexed: Estimated:136 (ml/min/m) Pre Cath Intra NCS Post Cath Vital Signs Time Heart Resp SPO2 etCO2 NIBP (mmHg) Rhythm Pain Sedation Rate (ipm) (%) (mmHg) Status Level (bpm) 10:10:17 76 11 94 23.9 130/67(97) NSR 0 (11) 10(A) , No pain 10:14:31 80 13 93 28.4 130/68(103) NSR 0 (11) 10(A) , No pain 10:18:45 80 20 91 25.4 126/65(82) NSR 0 (11) 10(A) , No pain 10:22:55 84 21 92 26.9 118/69(97) NSR 0 (11) 10(A) , No pain 10:27:05 81 19 92 28.4 129/64(86) NSR 0 (11) 10(A) , No pain 10:31:14 80 15 92 32.9 105/59(72) NSR 0 (11) 10(A) , No pain 10:35:18 82 16 89 21.7 115/64(82) NSR 0 (11) 10(A) , No pain 10:39:26 78 11 94 0 113/66(89) NSR 0 (11) 10(A) , No pain Medications Time Medication Route Dose Verified Delivered Reason Notes Effectiveness by by 10:08:23 0.9% NaCl I.V. 100 Luke Luke Per physician ml/hr Abimbola Daily RN RN 10:08:35 Oxygen etCO2 2 Luke Luke for low 02 sats Nasal l/min Abimbola Daily cannula RN RN 10:08:51 Heparin Flush added 2 Luke Luke used for Bag to bags Abimbloa Daily procedure (1000units/500ml RN RN NS) 10:09:05 Lidocaine 2% added 20ml Luke Luke for local to vial Abimbola Daily anesthetic RN RN 10:18:12 Versed I.V. 2 mg Luke Luke for sedation Abimbola Daily RN RN 10:18:22 Fentanyl I.V. 100 Luke Luke for sedation mcg Abimbola Daily RN RN 10:19:42 Versed I.V. 1 mg Luke Luke for sedation Abimbola Daily RN RN 10:22:32 Versed I.V. 1 mg Luke Luke for sedation Abimbola Daily RN RN 10:25:58 Heparin Bolus I.V. 4000 Luke Luke for units Abimbola Daily anticoagulation RN RN 10:26:18 Fentanyl I.V. 50 Luke Luke for sedation mcg Abimbola Daily RN information resource consultant Log Time Note 9:41:47 Informed consent obtained and on chart 9:55:21 Diagnostic Cath Status : Elective 9:55:44 Admit Source: Other 9:55:53 Procedure Status PCI, Peripheral. 9:55:57 Norah DE LA ROSA(R) (CV) sent for patient. Start room use. 9:56:06 Time tracking: Regular hours (M-F 7:00 - 5:00) 9:56:10 Plan of Care:Hemodynamics will remain stable., Cardiac rhythm will remain stable., Comfort level will be maintained., Respiratory function will remain adequate., Patient/ family verbilizes understanding of procedure., Procedure tolerated without complication., Recovers from procedure without complications.. 9:56:12 Pre-procedure instructions explained to patient. 9:56:13 Pre-op teaching completed and patient verbalized understanding. 9:56:14 Family in waiting room. 9:56:16 Patient NPO since Midnight. 9:56:26 Patient allergic to No known allergies 9:56:57 Lab Result : BUN 16 mg/dl 9::57 Lab Result : Creatinine 0.7 mg/dl 9:56:57 Lab Result : Hemoglobin 16.9 g/dl 9:56:57 Lab Result : eGFR NONAFRICAN 90 ml/min 9:56:57 Lab Result : Hematocrit 48.6 % 9:57:04 Stress Test: no; N/A ? 9:57:07 Lab results completed and on chart. 9:57:09 Alarms reviewed by R. N. 9:57:09 Sharps counted by scrub and verified by R.N. 9:57:13 Left groin area was prepped with chlora-prep and draped in sterile fashion 9:57:23 Patient received from Pre/Post Procedure Room to CCL 1 Alert and oriented. Tansferred to table in Supine position. 9:57:26 Warm blankets applied, and paul hugger turned on for patient comfort. 9:57:27 Correct patient and procedure confirmed by team. 9:57:28 ECG and BP/O2 sat monitors applied to patient. 9:57:34 Is the patient allergic to Iodine/contrast media? No. 9:57:37 Was the patient premedicated? N/A 9:57:39 Is patient on blood thinner?Yes 9:58:52 Arrival Date: 05/29/2019 12:00:00 AM 9:58:57 Insurance Payor : Private health insurance 9:58:59 Patient Height : 63 inches 9:59:03 Patient Weight : 2114.24 lbs 10:08:23 0.9% NaCl 100 ml/hr I.V. was administered by Luke Daily RN; Per physician; Verbal order read back and verified. 10:08:35 Oxygen 2 l/min etCO2 Nasal cannula was administered by Luke Daily RN; for low 02 sats; Verbal order read back and verified. 10:08:51 Heparin Flush Bag (1000units/500ml NS) 2 bags added to field was administered by Luke Dialy RN; used for procedure; Verbal order read back and verified. 10:09:05 Lidocaine 2% 20ml vial added to field was administered by Luke Daily RN; for local anesthetic; Verbal order read back and verified. 10:09:10 Vital chart was started 10:10:55 ACC The patient was administered the following blood thiners within the last 24 hours: ACCPlavix 10:10:58 Patient diabetic? Yes. 10:11:02 If diabetic: On Metformin? Yes 10:11:43 If on Metformin: Last Dose? 05/28/2019 10:11:51 - 10:11:52 ----Pre-sedation anethsthesia assessment.---- 10:11:57 Previous problem with sedation/anesthesia? No ? 10:12:00 Snore? Yes 10:12:05 Sleep apnea? No 10:12:08 Deviated septum? No 10:12:10 Opens mouth fully? Yes 10:12:12 Sticks out tongue? Yes 10:12:16 Airway obstruction? No ? 10:12:20 Dentures? No ? 10:12:29 Pre procedure: left dorsailis pedis pulse 1+ Palpable, but thready & weak; easily obliterated 10:12:40 IV patent on arrival in left forearm with 0.9% NaCl at KVO. 10:12:52 Use device set Femoral Dx 10:12:53 ACIST Syringe (40400) opened to sterile field. 10:12:54 Bag Decanter () opened to sterile field. 10:12:55 Medline Cath Pack ([id number]) opened to sterile field. 10:12:57 ACIST Hand Control (95498) opened to sterile field. 10:12:58 ACIST Manifold (31865) opened to sterile field. 10:13:03 EMERALD Guide Wire (422-489) opened to sterile field. 10:13:18 SHEATH 6FR Mathews (BWM301) opened to sterile field. 10:13:26 INFLATOR Merit BasixCompak (ZU6795) opened to sterile field. 10:13:43 SHEATH 6FR Destination (RSR01) opened to sterile field. 10:17:40 Physician arrived 10:17:41 --------ALL STOP TIME OUT------ 10:17:42 Final Timeout: patient, procedure, and site verified with staff and physician. All members of the team are in agreement. 10:17:44 Left groin site verified by team. 10:17:50 Fire Safety Assessment: A--An alcohol-based skin anteseptic being used preoperatively., C--Open oxygen or nitrous oxide is being used., D--An ESU, laser, or fiber-optic light is being used. 10:17:54 Physical assessment completed. ASA score P 2 - A patient with mild systemic disease as per Fabian Arango MD. 10:17:59 1) 90+ Normal kidney functon but urine findings or structural abnormalities or genetic trait point to kidney disease. 10:18:04 Maximum allowable contrast dose (3.7 X eGFR X 0.75)250 ml. 10:18:09 Sedation plan: IV Moderate Sedation Medication:Versed, Fentanyl 10:18:12 Versed 2 mg I.V. was administered by Luke Daily RN; for sedation; Verbal order read back and verified. 10:18:15 Procedure started. 10:18:15 Full Disclosure recording started 10:18:20 Local anesthetic to left femerol artery with Lidocaine 2% by Fabian Arango MD.INITIAL ACCESS ONLY 10:18:22 Fentanyl 100 mcg I.V. was administered by Luke Daily RN; for sedation; Verbal order read back and verified. 10:18:35 A 6 Fr Short sheath was inserted into the Right Femoral artery 10:19:42 Versed 1 mg I.V. was administered by Luke Lorigan RN; for sedation; Verbal order read back and verified. 10:19:56 A DIAGNOSTIC UF 5Fr catheter ([id number]) was advanced over the wire and used for Procedure. 10:20:23 GLIDE 260 STIFF wire advanced INTO THE RIGHT FEMERAL ARTERY BY UP AND OVER THE BIFIRACATION. 10:21:35 TORQUE DEVICE PLASTIC .038 ( TD01) opened to sterile field. 10:22:07 THE SHORT 6 SWEDISH SHEATH IS EXCHANGED FOR THE LONG 6 SWEDISH DESTINATION. 10:22:32 Versed 1 mg I.V. was administered by Luke Daily RN; for sedation; Verbal order read back and verified. 10:24:28 RIGHT LEG INJECTION IS MADE INTO THE RIGHT SFA. 10:25:36 THE GLIDEWIRE IS REMOVED AND REPLACED BY LONG PT CHOICE 300CM 10:25:58 Heparin Bolus 4000 units I.V. was administered by Luke Daily RN; for anticoagulation; Verbal order read back and verified. 10:26:18 Fentanyl 50 mcg I.V. was administered by Luke Daily RN; for sedation; Verbal order read back and verified. 10:26:59 Procedure type changed to Cath procedure, Peripheral Cath Diagnostic Procedure, Service Member Peripheral Procedures, Yuaen-Ktzlbep-Uxe-Off, Peripheral vascular Intervention, Stent, Stent-Fem/Popw/plasty 10:27:32 Inflate balloon Inflation number: 1 A SABER 5.0 x 2 x 150 balloon ([id number]) was prepped and advanced across the Mid Superficial Femoral, Right , then inflated to 8 LUIZ for 0:00 (min:sec) . 10:27:48 Inflation number: 2 The SABER 5.0 x 2 x 150 balloon ([id number]) was reinflated across the Mid Superficial Femoral, Right , to 7 LUIZ for 0:00 (min:sec) . 10:28:55 Balloon removed over the wire. 10:29:38 SMART Flex 5 X 40 X 120 stent ([id number]) was deployed across RT SFA. 10:31:09 Stent catheter was removed intact over wire. 10:31:16 Inflation number: 3 The SABER 5.0 x 2 x 150 balloon ([id number]) was reinflated across the Mid Superficial Femoral, Right , to 5 LUIZ for 0:00 (min:sec) . 10:31:19 Inflation number: 4 The SABER 5.0 x 2 x 150 balloon ([id number]) was reinflated across the Mid Superficial Femoral, Right , to 7 LUIZ for 0:00 (min:sec) . 10:32:07 Balloon removed over the wire. 10:32:25 EXOSEAL 6Fr (EX600) opened to sterile field. 10:32:59 THE LONG SHEATH IS REPLACED WITH THE SHORT 6FRENCH SHEATH 10:33:13 Sheath removed intact; hemostasis achieved with Exoseal to the Right Femoral artery. 10:33:17 Procedure ended.(Physican Out) 10:33:37 Contrast amount:Isovue 300 51ml. 10:35:26 Fluoroscopy time 05.60 minutes. 10:35:34 Flurop Dose total: 72 10:35:34 Fluoroscopy dose: 72 mGy 10:35:58 Dose Area Product 7378 mGy/cm. 10:36:04 Maximum allowable dose exceeded? No. 10:36:06 Sharps counted by scrub and verified by R.N. 10:36:08 Insertion/operative site no bleeding no hematoma. 10:36:14 Post-op/insertion site Left Femoral artery dressed using a 4 x 4 and Tegaderm. 10:36:29 Post left femerol artery:stable 10:36:31 Post Procedure Pulses reassessed and unchanged 10:36:36 Post-procedure physical assessment completed. ASA score P 2 - A patient with mild systemic disease as per Fabian Arango MD. 10:36:42 Post procedure rhythm: unchanged. 10:36:45 Estimated blood loss: 5 ml 10:36:47 Post procedure instruction explained to patient.Patient verbalizes understanding. 10:36:48 Patient needs reinforcement of post procedure teaching. 10:36:50 Procedure and supply charges have been captured, reviewed, submitted an d are correct. 10:37:20 ACT drawn and resulted at High - out of range seconds. (normal therapeutic range 180-240 seconds). 10:40:32 Procedure Complication : No complications 10:40:44 AFRO Findings: PVD: ELECTRIC ARC FURNACE OPERATOR performed (see procedure notes) 10:40:46 Operative report dictated upon procedure completion. 10:40:47 See physician's report for complete and final results. 10:40:49 Report given to Pre/Post Procedure Room. 10:40:52 Patient transfered to Pre/Post Procedure Room with Stretcher. 10:40:55 Procedure ended. 10:40:55 Full Disclosure recording stopped 10:40:58 End room use (Document Last) 10:43:16 Vital chart was stopped Intervention Summary Intervention Notes Time ActionType Lesion and Equipment Action# Pressure Duration Attributes Used 10:27:32 Inflate Mid SABER 5.0 x 1 8 00:00 balloon Superficial 2 x 150 Femoral, balloon Right ([id number]) 10:27:48 Reinflate Mid SABER 5.0 x 2 7 00:00 balloon Superficial 2 x 150 Femoral, balloon Right ([id number]) 10:29:38 Deploy self Undefined1 SMART Flex 1 expanding 5 X 40 X stent 120 stent ([id number]) 10:31:16 Reinflate Mid SABER 5.0 x 3 5 00:00 balloon Superficial 2 x 150 Femoral, balloon Right ([id number]) 10:31:19 Reinflate Mid SABER 5.0 x 4 7 00:00 balloon Superficial 2 x 150 Femoral, balloon Right ([id number]) Device Usage Item Name Manufacture Quantity Catalog Hospital Part Current Minimal L ot# / Number Charge Number Stock Stock Serial# Code ACIST Acist 1 35578 006793 355975 095308 20 Syringe Medical (22370) Systems Inc Bag Microtek 1 2001S 344428 59431 178994 5 Decanter Medical Inc. () Medline Medline 1 [id number] 110304 24520 645691 5 Cath Pack ([id number]) ACIST Hand Acist 1 73495 316497 203954 899066 5 Control Medical (20061) Systems Inc ACIST Acist 1 05190 672711 817913 225705 5 Manifold Medical (56380) Systems Inc EMERALD Cardinal 1 502-455 386280 234313 282368 5 Guide Wire Health (502-455) SHEATH 6FR Terumo 1 ZFV724 541636 272839 925422 40 Mathews (ZQJ357) INFLATOR Merit 1 DS1593 265355 908647 278690 15 Merit Medical BasixCompak (YV8259) SHEATH 6FR Terumo 1 RSR01 915268 31272 781915 5 Destination (RSR01) DIAGNOSTIC Cardinal 1 [id number] 759705 019042 876791 10 UF 5Fr Health catheter ([id number]) TORQUE [place] 1 TD01 822739 854285 690173 5 DEVICE Scientific PLASTIC .038 ( TD01) SABER 5.0 x Cardinal 1 [id number] 692958 876204 5 2 x 150 Health balloon ([id number]) SMART Flex Cardinal 1 [id number] 148681 630747 890400 0 4 4387 5 X 40 X Health 120 stent ([id number]) EXOSEAL 6Fr Cardinal 1 EX600 814384 103392 689424 10 (EX600) Health Signature Audit [place] Stage Time Signature Unsigned Intra-Procedure 05/29/2019 Norah 10:42:05 AM Armando RT(R) (CV) Intra-Procedure 05/29/2019 Luke 10:42:46 AM Abimbola ANDREWS Intra-Procedure 05/29/2019 Fabian Arango 10:43:14 AM [id number] [place] [address]
--- NOTE | ~2019-05-29 | OP ---
PATIENT NAME: KARINE CUETO MEDICAL RECORD: [id number] :59 LOCATION:D.CAT ADMISSION DATE: SURGEON: UTE SANDOVAL MD DATE OF OPERATION: 05/29/2019 PROCEDURES: 1. Stent placement SFA, right. 2. MICROWAVE TECHNICIAN SFA, right. 3. Unilateral extremity angiography. INDICATIONS: Claudication and peripheral vascular disease. PROCEDURE IN DETAIL: After informed consent was obtained and after a detailed explanation of risks, benefits as well as alternative therapies, the patient elected to proceed with angiogram and angioplasty. The left femoral area was prepped and draped in normal sterile fashion. Left femoral artery was cannulated via modified Seldinger technique with placement of a 6-Bangladeshi cdrucc-asy-ygft sheath. All catheters exchanged through this sheath. FINDINGS: The right SFA with 90% stenosis. This was addressed with a 5.0 balloon. This yielded suboptimal result with severe intimal dissection. Stenting was undertaken with a 5 x 40 SMART stent. Result was 0% residual stenosis. OVERALL IMPRESSION: Successful MICROWAVE TECHNICIAN and stent of the right SFA going from 90% initial stenosis to 0% residual. TRANSINT:[id number] Voice Confirmation ID: [id number] DOCUMENT ID: [id number] UTE SANDOVAL MD CC: [id number] DICTATION DATE: 05/29/19 1037 CALIBRATION TECHNICIAN: 05/29/19 1314 [facility] [address] [place] [id number]
[~2019-05-29 08:04] MED LIST changes: +GLUCOPHAGE500 MG PO
[2019-05-29 08:30] VITALS: BP 113/62; Ht 160 cm; Wt 59.1 kg
[2019-05-29 08:59] LABS: BASOPHILS 0.2 % (0-2); EOSINOPHILS 1.1 % (0-7); HEMATOCRIT 48.6 % (36.0-48.0); HEMOGLOBIN 16.9 g/dL (12-16); IMMATURE GRANULOCYTES 0.3 % (0-5); LYMPHOCYTES 26.9 % (15-50); MCH 31.7 pg (26.0-34.0); MCHC 34.8 g/dL (31.0-37.0); MCV 91.2 fL (80.0-100.0); MEAN PLATELET VOLUME 8.8 fL (7.4-10.4); MONOCYTES 12.3 % (2-11); NEUTROPHILS 59.2 % (40-80); PLATELET COUNT 474 10x3/uL (130-400); RBC 5.33 10x6/uL (4.00-5.40); RDW 13.9 % (11.5-14.5); WBC 15.7 10x3/uL (4.8-10.8)
[2019-05-29 09:09] LABS: CALC OSMOLALITY 273 mosm/kg (275-300); CALCIUM 9.2 mg/dL (8.5-10.1); CARBON DIOXIDE 22.7 mmol/L (21.0-32.0); CHLORIDE - SERUM 102 mmol/L (98-107); CREATININE - SERUM 0.7 mg/dL (0.6-1.3); GLUCOSE 148 mg/dL (74-106); POTASSIUM - SERUM 4.3 mmol/L (3.5-5.1); SODIUM 135 mmol/L (136-145); UREA NITROGEN 16 mg/dL (7-18); eGFR NON AFRICAN AMERICAN 90 mL/min (90-120)
== END 2019-05-29 14:30 | disposition home or self-care (01) ==
LOC: D.CATH 08:04
PROVIDERS: ATTEND Internal Medicine Interventional Cardiology
DX: I25.10 Atherosclerotic heart disease of native coronary artery without angina pectoris (principal); I10 Essential (primary) hypertension; E78.5 Hyperlipidemia, unspecified; I73.9 Peripheral vascular disease, unspecified

== ENCOUNTER → 2019-07-30 09:33 | Outpatient (CLI) | payer OTHER ==
[2019-05-29 08:30] VITALS: BMI 23.0
[2019-07-31 09:09] LABS: HEPATITIS C ANTIBODY <0.1 S/CO RAT (0.0-0.9)
== END | disposition home or self-care (01) ==
LOC: D.LAB 09:33 → D.US 10:30
PROVIDERS: ATTEND Internal Medicine Gastroenterology
DX: R74.0 Nonspecific elevation of levels of transaminase and lactic acid dehydrogenase [LDH] (principal)

== ENCOUNTER 2019-10-02 08:00 | Outpatient (CLI) | payer OTHER ==
[2019-05-29 08:30] VITALS: BMI 23.0
[2019-10-03 11:52] LABS: ALT (SGPT) 67 U/L (10-68); CHOL - HDL RATIO 5.5 ratio (2.3-4.1); CHOLESTEROL, TOTAL 180 mg/dL (0-200); HDL CHOLESTEROL 33 mg/dL (32-96)
[2019-10-03 11:56] LABS: TRIGLYCERIDE 513 mg/dL (30-200)
== END 2019-10-02 08:01 | disposition home or self-care (01) ==
LOC: D.LABREF 08:00
PROVIDERS: ATTEND Nurse Practitioner
DX: E78.5 Hyperlipidemia, unspecified (principal)

== ENCOUNTER → 2019-12-24 19:39 | Outpatient (CLI) | payer OTHER ==
[2019-05-29 08:30] VITALS: BMI 23.0
[2019-12-24 20:28] LABS: LDL-HDL RATIO 1.7 ratio (1.5-3.5)
== END | disposition home or self-care (01) ==
LOC: D.LABREF 19:39
PROVIDERS: ATTEND Internal Medicine Cardiovascular Disease
DX: E78.5 Hyperlipidemia, unspecified (principal)

== ENCOUNTER 2020-07-07 14:05 | Outpatient (CLI) | payer OTHER, MEDICAID ==
[2019-05-29 08:30] VITALS: BMI 23.0
== END 2020-07-07 23:59 | disposition home or self-care (01) ==
LOC: D.MAMMO 14:05
PROVIDERS: ATTEND Family Medicine
DX: Z12.31 Encounter for screening mammogram for malignant neoplasm of breast (principal)